=== PATIENT | male | born 1945 | race African-American/Black ===

== ENCOUNTER → 2020-06-10 | Outpatient (CLI) | payer MEDICARE, OTHER ==
--- NOTE | 2020-06-10 13:52 | KCIC ---
EXAM: Brain MRI without contrast. HISTORY: Memory loss. TECHNIQUE: Multiplanar, multisequence magnetic resonance imaging of the brain was performed without c ontrast. COMPARISON: None. FINDINGS: There is no restricted diffusion to suggest acute or subacute infarction. There is no susce ptibility effect to suggest hemorrhage. There is no mass effect or midline shift. There is no hydroce phalus. There is a focus of encephalomalacia within the right cerebellum, likely due to chronic infarction. T here are scattered areas of signal change within the cerebral white matter and ghislaine, likely due to ch ronic small vessel disease. There is cerebral volume loss. The orbits are unremarkable. There is mild paranasal sinus because of thickening and there is a tiny amount of fluid within left mastoid air cells. There are normal flow voids within the cerebral vessel s. There is no suspicious calvarial lesion. IMPRESSION: 1. No acute intracranial finding. 2. Scattered areas of signal change within the cerebral white matter and ghislaine, likely due to chronic small vessel disease. 3. Chronic infarct within the right cerebellum. Electronically signed by: Georgina Tavera MD (06/10/2020 1:50 PM) [id number]
== END ==
LOC: KCIC MRI 13:04
PROVIDERS: ATTEND Family Medicine
DX: I63.9 Cerebral infarction, unspecified (principal); R41.3 Other amnesia
CPT/HCPCS: 70551

== ENCOUNTER 2021-05-31 18:00 | Inpatient (IN) | payer MEDICARE, OTHER ==
[~2021-05-31] VITALS: Ht 172.7 cm; Wt 93.3 kg
--- NOTE | 2021-05-31 18:30 | PHYS DOC ---
Past Medical History Additional Past Medical Histor: Gout Past Surgical History: No Surgical History General Adult EDM: Chief Complaint: ABDOMINAL PAIN HPI: HPI: 76-year-old male presents with a chief complaint of right quadrant abdominal pain. Patient states pain suddenly started around noon. Patient's pain is located in the right upper quadrant does not radiate he has associated diarrhea denies any nausea or vomiting. Review of Systems: Review of Systems: Review of systems: Constitutional symptoms- No fever, no chills. Eyes- No Discharge, No Visual Loss Respiratory symptoms- No shortness of breath, No wheezing, No Dyspnea on Exertion Cardiovascular Systems; No chest pain, No Palpitations, No syncope Gastrointestinal symptoms: Positive abdominal pain, no nausea, no vomitingPositive diarrhea. Genitourinary symptoms: No dysuria. Musculoskeletal symptoms: No back pain No extremity pain. NEUROLOGICAL Symptoms: No headache, no generalized weakness; No focal Weakness Skin: No rash. Heart Score: C/O Chest Pain: N/A Risk Factors: Risk Factors: DM, Current or recent (<one month) smoker, HTN, HLP, family history of CAD, obesity. Risk Scores: Score 0 - 3: 2.5% MACE over next 6 weeks - Discharge Home Score 4 - 6: 20.3% MACE over next 6 weeks - Admit for Clinical Observation Score 7 - 10: 72.7% MACE over next 6 weeks - Early Invasive Strategies Physical Exam: PE: Constitutional: Well developed, well nourished, no acute distress, non-toxic appearance. [] HENT: Normocephalic, atraumatic, bilateral external ears normal, oropharynx moist, no oral exudates, nose normal. [] Eyes: PERRLA, EOMI, conjunctiva normal, no discharge. [] Neck: Normal range of motion, no tenderness, supple, no stridor. [] Cardiovascular:Heart rate regular rhythm, no murmur [] Lungs & Thorax: Bilateral breath sounds clear to auscultation [] Abdomen: Bowel sounds normal, soft, no tenderness, no masses, no pulsatile masses. [] Skin: Warm, dry, no erythema, no rash. [] Back: No tenderness, no CVA tenderness. [] Extremities: No tenderness, no cyanosis, no clubbing, ROM intact, no edema. [] Neurologic: Alert and oriented X 3, normal motor function, normal sensory function, no focal deficits noted. [] Psychologic: Affect normal, judgement normal, mood normal. [] Current Patient Data: Vital Signs: Vital Signs Date Time Temp Pulse Resp B/P (MAP) Pulse Ox O2 Delivery O2 Flow Rate FiO2 05/31/21 18:14 99.0 98 20 202/82 (122) 99 Room Air 99.0 EKG: EKG: [] Performed at 1855 Rate 69 Normal sinus rhythm No ST elevation No ST depression No acute SC Radiology/Procedures: Radiology/Procedures: [] Course & Med Decision Making: Course & Med Decision Making Pertinent Labs and Imaging studies reviewed. (See chart for details) [] Patient evaluated for chief complaint. Work-up consisted of laboratory analysis and radiologic imaging. Patient t found to have BUN greater than 50 creatinine greater than 2 potassium greater than 6. Treatment included IV fluid calcium Lasix albuterol and insulin and glucose. Patient will be admitted to the hospitalist for further evaluation and treatment. Critical Care Time 30 Minutes Time spent on reviewing labs, radiologic imaging, documentation, and discussing patient with consults. Renata Disclaimer: Renata Disclaimer: This electronic medical record was generated, in whole or in part, using a voice recognition dictation system. Departure Departure Impression: Primary Impression: Abdominal pain Additional Impressions: Acute renal failure Hyperkalemia Disposition: ADMITTED INPATIENT Referrals: JACKLYN CHINO MD (PCP) GINA YUAN DO May 31, 2021 18:30
[2021-05-31 18:44] LABS: BASO # 0.1 x10^3/uL (0.0-0.2); BASO % 1 % (0-3); EOS # 0.4 x10^3/uL (0.0-0.7); EOS % 5 % (0-3); HEMATOCRIT 39.5 % (39.0-53.0); LYMPH # 2.8 x10^3/uL (1.0-4.8); LYMPH % 36 % (24-48); MEAN CORPUSCULAR HEMOGLOBIN 32 pg (25-35); MEAN CORPUSCULAR HGB CONC 33 g/dL (31-37); MEAN CORPUSCULAR VOLUME 96 fL (79-100); MONO # 0.6 x10^3/uL (0.0-1.1); MONO % 8 % (0-9); NEUT # 3.9 x10^3/uL (1.8-7.7); NEUT % 50 % (31-73); PLATELET COUNT 211 x10^3/uL (140-400); RED BLOOD COUNT 4.13 x10^6/uL (4.30-5.70); RED CELL DISTRIBUTION WIDTH 15.9 % (11.5-14.5); WHITE BLOOD COUNT 7.8 x10^3/uL (4.0-11.0)
[2021-05-31 19:24] LABS: ALBUMIN 2.9 g/dL (3.4-5.0); ALBUMIN/GLOBULIN RATIO 0.6 (1.0-1.7); CALCIUM 8.6 mg/dL (8.5-10.1); CREATININE 2.9 mg/dL (0.7-1.3); GFR 25.7; TOTAL BILIRUBIN 0.3 mg/dL (0.2-1.0); TOTAL PROTEIN 7.4 g/dL (6.4-8.2)
[2021-05-31 19:29] LABS: POTASSIUM 6.3 mmol/L (3.5-5.1)
[2021-05-31] MEDS ORDERED: MORPHINE SULFATE 4 MG/ML INJ. IV STA (19:51)
[2021-05-31] MEDS ORDERED: CALCIUM GLUCONATE 1,000 MG/10 ML VIAL. IVP ONE (20:00)
[2021-05-31] MEDS ORDERED: ONDANSETRON PF 4 MG/2 ML VIAL. IVP ONE (20:00)
[2021-05-31] MEDS ORDERED: FUROSEMIDE 40 MG/4 ML VIAL. IVP ONE (20:00)
--- NOTE | 2021-05-31 20:29 | RAD ---
Exam: CT of abdomen and pelvis without contrast INDICATION: Abdominal pain TECHNIQUE: Sequential axial images through the abdomen and pelvis obtained without IV contrast. Sagit napoleon and coronal reformatted images were reconstructed from the axial data and reviewed. Exposure: One or more of the following in the visualized dose reduction techniques were utilized for this examination: 1. Automated exposure control 2. Adjustment of the MA and/or KV according to patient size 3. Use of iterative of reconstructive technique Comparisons: None FINDINGS: Heart size is normal. No pericardial visualized lung bases are clear. No pleural effusion. Evaluation of solid organs is limited secondary to noncontrast technique. Liver, spleen, pancreas, gallbladder and adrenals are unremarkable. No perinephric inflammation or hydronephrosis. No renal or ureteral calculi are identified. Bladder is partially distended and not well evaluated. Prostate is not enlarged. Large and small bowel are unremarkable. Appendix is normal. No free intra-abdominal air fluid. No obs truction. Abdominal aorta has normal course and caliber. No enlarged intra-abdominal lymph nodes. No suspicious osseous lesions or acute fractures. IMPRESSION: No acute process identified within the abdomen or pelvis. Electronically signed by: Joey Mir MD (05/31/2021 8:27 PM) ANALISA
[2021-05-31] MEDS ORDERED: IV NORMAL SALINE 1000ML BAG 1,000 ML IV ONE (20:45)
[2021-05-31 20:49] LABS: BILIRUBIN,URINE NEGATIVE (NEG); CLARITY,URINE CLEAR; COLOR,URINE YELLOW; NITRITE,URINE NEGATIVE (NEG); PH,URINE 6.5 (<5.0-8.0); PROTEIN,URINE 100 mg/dL (NEG-TRACE); UROBILINOGEN,URINE 0.2 mg/dL (0.2 mg/dL)
[2021-05-31 20:56] LABS: BACTERIA,URINE 0 /HPF (0-FEW); RBC,URINE OCC /HPF (0-2); WBC,URINE 0 /HPF (0-4)
[2021-05-31] MEDS ORDERED: INSULIN REGULAR 100 UNIT/ML 3ML VIAL. SQ ONE (22:15)
[2021-05-31] MEDS ORDERED: DEXTROSE 50% 25 GM / 50ML DISP.SYRIN. IV ONE (22:15)
[2021-05-31] MEDS ORDERED: ONDANSETRON PF 4 MG/2 ML VIAL. IVP PRN (22:15)
[2021-06-01] VITALS (7 sets, daily range): BP systolic 162–182; BP diastolic 69–90
[2021-06-01] MEDS ORDERED: INSU100I27 SQ (02:27)
[2021-06-01] MEDS ORDERED: SODI650T PO (02:27)
[2021-06-01] MEDS ORDERED: LINA5TAB PO (02:27)
[2021-06-01] MEDS ORDERED: PANT40TA77 PO (02:27)
[2021-06-01] MEDS ORDERED: ATOR40TA59 PO (02:27)
[2021-06-01] MEDS ORDERED: METO50TA6 PO (02:27)
[2021-06-01] MEDS ORDERED: FLUT16SP NS (02:27)
[2021-06-01] MEDS ORDERED: INSU100I17 SQ (02:27)
[2021-06-01] MEDS ORDERED: FOLI0.8T3 PO (02:27)
[2021-06-01] MEDS ORDERED: ASPI-630 PO (02:27)
[2021-06-01] MEDS ORDERED: ALLO100T PO (02:27)
[2021-06-01] MEDS ORDERED: ACET325T21 PO (02:31)
[2021-06-01] MEDS ORDERED: GUAI1TAB10 PO (02:31)
[2021-06-01] MEDS ORDERED: MAG1TAB.11 PO (02:31)
[2021-06-01] MEDS ORDERED: ALBU2.5V8 INH (02:31)
[2021-06-01] MEDS ORDERED: LOPE2TAB27 PO (02:31)
[2021-06-01] MEDS ORDERED: CALC300T5 PO (02:31)
[2021-06-01] MEDS ORDERED: LORA10TA3 PO (02:31)
[2021-06-01] MEDS ORDERED: BISA10SU55 RC (02:31)
[2021-06-01] MEDS ORDERED: SENN1TAB62 PO (02:31)
[2021-06-01] MEDS ORDERED: NYST15CR TP (02:34)
--- NOTE | 2021-06-01 04:03 | NUR ---
Spoke with Dr Obando regarding pt's med/surg admission status and elevated potassium level. Order for tele received.
[2021-06-01] MEDS: METOPROLOL TART IMMED RELEASE 50 MG TABLET. PO SCH ×3 (04:35→22:12)
[2021-06-01] MEDS ORDERED: DEXTROSE 50% 25 GM / 50ML DISP.SYRIN. IV PRN ×2 (08:00→09:00)
[2021-06-01] MEDS: INSULIN LISPRO 300 UNITS/3 ML VIAL. SQ SCH ×7 (08:00→17:00)
[2021-06-01] MEDS ORDERED: SENNOSIDES/DOCUSATE 8.6/50MG TABLET. PO PRN (09:00)
[2021-06-01] MEDS ORDERED: NYSTATIN 100,000 UNIT/GM TOPICAL CREAM 15GM TUBE. TP PRN (09:00)
[2021-06-01] MEDS ORDERED: ACETAMINOPHEN 325 MG TABLET. PO PRN (09:00)
[2021-06-01] MEDS ORDERED: METOPROLOL TART IMMED RELEASE 50 MG TABLET. PO SCH (09:00)
[2021-06-01] MEDS: SODIUM BICARBONATE 650 MG TABLET. PO SCH ×2 (09:30→22:11)
[2021-06-01] MEDS: FLUTICASONE 50MCG/NASAL SPRAY 16GM BOTTLE. NS SCH (09:30)
[2021-06-01] MEDS: ASPIRIN CHEWABLE 81 MG TABLET. PO SCH (09:30)
[2021-06-01] MEDS: ALLOPURINOL 100 MG TABLET. PO SCH (09:31)
[2021-06-01] MEDS: ATORVASTATIN CALCIUM 40 MG TABLET. PO SCH (09:31)
[2021-06-01] MEDS: PANTOPRAZOLE 40 MG TABLET.DR. PO SCH (09:31)
[2021-06-01] MEDS: FOLIC/VIT B COMP W-C (RENAL) TABLET. PO SCH (09:31)
[2021-06-01] MEDS: LINAGLIPTIN 5 MG TABLET PO SCH (09:31)
--- NOTE | 2021-06-01 09:58 | RAD ---
EXAM: Abdomen sonogram. HISTORY: Pain. TECHNIQUE: Sonographic imaging of the abdomen was performed. COMPARISON: None. FINDINGS: The liver is normal in size. There is hepatic steatosis. No focal hepatic lesion is seen. T he gallbladder is unremarkable. The common bile duct is normal in caliber. The kidneys are normal in size. There is a 2.4 cm simple appearing right renal cyst. The pancreas, aorta and inferior vena cava are obscured due to bowel gas. The spleen is normal in size. IMPRESSION: 1. Hepatic steatosis. 2. 2.4 cm simple appearing right renal cyst. Follow-up is not routinely performed for simple cysts. 3. Obscured midline structures due to bowel gas. Electronically signed by: Georgina Tavera MD (06/01/2021 9:56 AM) [id number]
[2021-06-01] MEDS ORDERED: SODIUM BICARBONATE VIAL 50 MEQ in IV 1/2 NORMAL SALINE 1,000 ML IV ONE (10:00)
[2021-06-01] MEDS ORDERED: LIDO:MAALOX 1:1 20 ML SINGLE DOSE. PO PRN (11:00)
[2021-06-01] MEDS ORDERED: LIDO:MAALOX 1:1 20 ML SINGLE DOSE. PO ONE (11:15)
--- NOTE | 2021-06-01 12:56 | PDOC1 ---
History and Physical Date of Admission Date of Admission DATE: 06/01/21 TIME: 12:55 Source Source: Chart review, Patient History of Present Illness History of Present Illness LATE ENTRY, pt seen 929 Mr. Tinajero is a 76-year-old male admit with chest pain, overnight, complaint was of right quadrant abdominal pain. Patient states pain suddenly started yesterday around noon. This AM, he still hurts, a is lying in bed, and appears weak. He complains of pain with mvoeemtn and can press on it and cause pain. Pain 6/10, does not radiate. NO chage in bowel or bladder. labs were concerning last night Past Medical History Cardiovascular: HTN Renal/: Chronic renal insuff Endocrine: Diabetes Dermatology: No pertinent hx Past Surgical History Past Surgical History: No pertinent history Family History Family History: Alzheimer's Disease Social History Smoke: No ALCOHOL: none Drugs: None Current Problem List Problem List Problems Medical Problems: (1) Abdominal pain Status: Acute (2) Acute renal failure Status: Acute (3) Hyperkalemia Status: Acute Current Medications Current Medications Current Medications Furosemide (Lasix) 40 mg 1X ONCE IVP Last administered on 05/31/21at 20:36; Start 05/31/21 at 20:00; Stop 05/31/21 at 20:01; Status DC Calcium Gluconate (Calcium Gluconate) 1,000 mg 1X ONCE IVP Last administered on 05/31/21at 20:38; Start 05/31/21 at 20:00; Stop 05/31/21 at 20:01; Status DC Ondansetron HCl (Zofran) 4 mg 1X ONCE IVP Last administered on 05/31/21at 20:33; Start 05/31/21 at 20:00; Stop 05/31/21 at 20:01; Status DC Morphine Sulfate (Morphine Sulfate) 4 mg 1X STAT IV Last administered on 05/31/21at 20:33; Start 05/31/21 at 19:51; Stop 05/31/21 at 19:53; Status DC Sodium Chloride 1,000 ml @ 1,000 mls/hr 1X ONCE IV Last administered on 05/31/21at 20:45; Start 05/31/21 at 20:45; Stop 05/31/21 at 21:44; Status DC Insulin Human Regular (HumuLIN R VIAL) 10 unit 1X ONCE SQ Last administered on 05/31/21at 22:37; Start 05/31/21 at 22:15; Stop 05/31/21 at 22:16; Status DC Dextrose (Dextrose 50%-Water Syringe) 25 gm 1X ONCE IV Last administered on 05/31/21at 22:36; Start 05/31/21 at 22:15; Stop 05/31/21 at 22:16; Status DC Ondansetron HCl (Zofran) 4 mg PRN Q8HRS PRN IVP NAUSEA/VOMITING; Start 05/31/21 at 22:15; Stop 06/01/21 at 22:14 Metoprolol Tartrate (Lopressor) 50 mg BID PO Last administered on 06/01/21at 04:35; Start 06/01/21 at 04:15 Insulin Human Lispro (HumaLOG) 0-5 UNITS TIDWMEALS SQ ; Start 06/01/21 at 08:00 Dextrose (Dextrose 50%-Water Syringe) 12.5 gm PRN Q15MIN PRN IV SEE COMMENTS; Start 06/01/21 at 08:00 Acetaminophen (Tylenol) 650 mg PRN Q6HRS PRN PO MILD PAIN / TEMP > 100.3'F; Start 06/01/21 at 09:00 Allopurinol (Zyloprim) 100 mg DAILY PO Last administered on 06/01/21 09:31; Start 06/01/21 at 09:00 Aspirin (Aspirin Chewable) 81 mg DAILY PO Last administered on 06/01/21 09:30; Start 06/01/21 at 09:00 Atorvastatin Calcium (Lipitor) 40 mg DAILY PO Last administered on 06/01/21 09:31; Start 06/01/21 at 09:00 Bisacodyl (Dulcolax Supp) 10 mg PRN DAILY PRN RC CONSTIPATION; Start 06/01/21 at 09:00 Fluticasone Propionate (Flonase) 2 spray DAILY NS Last administered on 06/01/21at 09:30; Start 06/01/21 at 09:00 Vitamin B Complex/ Vitamin C (Jocy-Keke) 1 tab DAILY PO Last administered on 06/01/21 09:31; Start 06/01/21 at 09:00 Linagliptin (Tradjenta) 5 mg DAILY PO Last administered on 12/29/21at 09:31; Start 06/01/21 at 09:00 Metoprolol Tartrate (Lopressor) 50 mg BID PO ; Start 06/01/21 at 09:00; Status UNV Nystatin (Mycostatin) 1 maggie PRN BID PRN TP SKIN PROTECTION; Start 06/01/21 at 09:00 Pantoprazole Sodium (Protonix) 40 mg DAILYAC PO Last administered on 06/01/21at 09:31; Start 06/01/21 at 09:00 Senna/Docusate Sodium (Senna Plus) 2 tab PRN QHS PRN PO CONSTIPATION; Start 06/01/21 at 09:00 Sodium Bicarbonate (Sodium Bicarbonate) 650 mg BID PO Last administered on 06/01/21at 09:30; Start 06/01/21 at 09:00 Insulin Human Lispro (HumaLOG) 8 units TIDWMEALS SQ ; Start 06/01/21 at 09:00 Insulin Glargine (Lantus Syringe) 27 unit QHS SQ ; Start 06/01/21 at 21:00 Insulin Human Lispro (HumaLOG) 0-9 UNITS TIDWMEALS SQ ; Start 06/01/21 at 12:00 Dextrose (Dextrose 50%-Water Syringe) 12.5 gm PRN Q15MIN PRN IV SEE COMMENTS; Start 06/01/21 at 09:00 Sodium Bicarbonate 50 meq/Sodium Chloride 1,050 ml @ 100 mls/hr 1X ONCE IV Last administered on 06/01/21at 09:32; Start 06/01/21 at 10:00; Stop 06/01/21 at 20:29 Active Scripts Active Reported Nystatin 15 Gm Cream..g. 1 Maggie TP PRN BID PRN Senna Plus Tablet (Sennosides/Docusate Sodium) 1 Each Tablet 2 Each PO PRN QHS PRN Mucus Relief Dm Tablet (Guaifenesin/Dextromethorphan) 1 Each Tablet 1 Each PO PRN BID PRN Mintox Plus Tablet Chewable (Mag Hydrox/Al Hydrox/Simeth) 1 Each Tab.chew 2 Each PO PRN Q3HRS PRN Loratadine 10 Mg Tablet 10 Mg PO PRN DAILY PRN Loperamide (Loperamide Hcl) 2 Mg Tablet 2 Mg PO PRN Q4HRS PRN Tums (Calcium Carbonate) 300 Mg Tab.chew 1,000 Mg PO PRN Q4HRS PRN Dulcolax (Bisacodyl) 10 Mg Supp.rect 10 Mg RC PRN DAILY PRN Proair Hfa Inhaler (Albuterol Sulfate) 8.5 Gm Hfa.aer.ad 2 Puff INH PRN Q4HRS PRN Acetaminophen 325 Mg Tablet 650 Mg PO PRN Q6HRS PRN Novolog Flexpen (Insulin Aspart) 100 Unit/1 Ml Insuln.pen 8 Unit SQ TIDWMEALS Levemir Flextouch (Insulin Detemir) 100 Unit/1 Ml Insuln.pen 27 Unit SQ QHS Tradjenta (Linagliptin) 5 Mg Tablet 5 Mg PO DAILY Sodium Bicarbonate 650 Mg Tablet 650 Mg PO BID Pantoprazole Sodium (Pantoprazole Sodium) 40 Mg Tablet.dr 40 Mg PO DAILYAC Nephro-Keke Tablet (Folic Acid/Vitamin B Comp W-C) 0.8 Mg Tablet 1 Tab PO DAILY Metoprolol Tartrate 50 Mg Tablet 50 Mg PO BID Fluticasone Propionate Nasal Allen (Fluticasone Propionate) 16 Gm Allen.susp 2 Allen NS DAILY Atorvastatin Calcium 40 Mg Tablet 40 Mg PO DAILY Aspirin 81 Mg Tab.chew 81 Mg PO DAILY Allopurinol 100 Mg Tablet 100 Mg PO DAILY Allergies Allergies: Coded Allergies: No Known Drug Allergies (Unverified , 05/31/21) ROS General: YES: Fatigue, Malaise; No: Chills, Night Sweats, Appetite, Other PSYCHOLOGICAL ROS: No: Anxiety, Behavioral Disorder, Concentration difficultie, Decreased libido, Depression, Disorientation, Hallucinations, Hostility, Irritablity, Memory difficulties, Mood Swings, Obsessive thoughts, Physical abuse, Sexual abuse, Sleep disturbances, Suicidal ideation, Other Eyes: No Blurry vision, No Decreased vision, No Double vision, No Dry eyes, No Excessive tearing, No Eye Pain, No Itchy Eyes, No Loss of vision, No Photophobia, No Scotomata, No Uses contacts, No Uses glasses, No Other HEENT: YES: Heacaches; No: Visual Changes, Hearing change, Nasal congestion, Nasal discharge, Oral lesions, Sinus pain, Sore Throat, Epistaxis, Sneezing, Snoring, Tinnitus, Vertigo, Vocal changes, Other Respiratory: YES: SOB with excertion; No: Cough, Hemoptysis, Orthopnea, Pleuritic Pain, Shortness of breath, Sputum Changes, Stridor, Tachypnea, Wheezing, Other Cardiovascular: No Chest Pain, No Palpitations, No Orthopnea, No Paroxysmal Noc. Dyspnea, No Edema, No Lt Headedness, No Other Gastrointestinal: Yes Nausea, Yes Abdominal Pain; No Vomiting, No Diarrhea, No Constipation, No Melena, No Hematochezia, No Other Genitourinary: No Dysuria, No Frequency, No Incontinence, No Hematuria, No Retention, No Discharge, No Urgency, No Pain, No Flank Pain, No Other, No , No , No , No , No , No , No Musculoskeletal: No Gait Disturbance, No Joint Pain, No Joint Stiffness, No Syeda int Swelling, No Muscle Pain, No Muscular Weakness, No Pain In:, No Swelling In:, No Other Neurological: No Behavorial Changes, No Bowel/Bladder ControlChng, No Confusion, No Dizziness, No Gait Disturbance, No Headaches, No Impaired C oord/balance, No Memory Loss, No Numbness/Tingling, No Seizures, No Speech Problems, No Tremors, No Visual Changes, No Weakness, No Other Skin: No Dry Skin, No Eczema, No Hair Changes, No Lumps, No Mole Changes, No Mottling, No Nail Changes, No Pruritus, No Rash, No Skin Lesion Changes, No Other, No Acne Physical Exam General: Alert, Oriented X3, Cooperative, mild distress HEENT: PERRLA Lungs: Normal air movement, Other (tender along lower right rib, to sternum pain to palpation) Heart: S1S2, no thrills Abdomen: Normal bowel sounds, Soft Rectal Exam: not examined Extremities: No clubbing Skin: No breakdown Neuro: Normal speech Psych/Mental Status: Mental status NL, Mood NL Vitals Vitals Vital Signs Date Time Temp Pulse Resp B/P (MAP) Pulse Ox O2 Delivery O2 Flow Rate FiO2 06/01/21 09:00 68 162/69 06/01/21 08:00 Room Air 06/01/21 07:00 98.0 21 94 98.0 Labs Labs Laboratory Tests Test 05/31/21 18:30 05/31/21 20:30 05/31/21 21:35 06/01/21 07:24 White Blood Count 7.8 x10^3/uL (4.0-11.0) Red Blood Count 4.13 x10^6/uL (4.30-5.70) Hemoglobin 13.0 g/dL (13.0-17.5) Hematocrit 39.5 % (39.0-53.0) Mean Corpuscular Volume 96 fL (79-100) Mean Corpuscular Hemoglobin 32 pg (25-35) Mean Corpuscular Hemoglobin Concent 33 g/dL (31-37) Red Cell Distribution Width 15.9 % (11.5-14.5) Platelet Count 211 x10^3/uL (140-400) Neutrophils (%) (Auto) 50 % (31-73) Lymphocytes (%) (Auto) 36 % (24-48) Monocytes (%) (Auto) 8 % (0-9) Eosinophils (%) (Auto) 5 % (0-3) Basophils (%) (Auto) 1 % (0-3) Neutrophils # (Auto) 3.9 x10^3/uL (1.8-7.7) Lymphocytes # (Auto) 2.8 x10^3/uL (1.0-4.8) Monocytes # (Auto) 0.6 x10^3/uL (0.0-1.1) Eosinophils # (Auto) 0.4 x10^3/uL (0.0-0.7) Basophils # (Auto) 0.1 x10^3/uL (0.0-0.2) Sodium Level 137 mmol/L (136-145) Potassium Level 6.3 mmol/L (3.5-5.1) 6.0 mmol/L (3.5-5.1) Chloride Level 104 mmol/L (98-107) Carbon Dioxide Level 22 mmol/L (21-32) Anion Gap 11 (6-14) Blood Urea Nitrogen 51 mg/dL (8-26) Creatinine 2.9 mg/dL (0.7-1.3) Estimated GFR (Cockcroft-Gault) 25.7 BUN/Creatinine Ratio 18 (6-20) Glucose Level 309 mg/dL (70-99) Calcium Level 8.6 mg/dL (8.5-10.1) Total Bilirubin 0.3 mg/dL (0.2-1.0) Aspartate Amino Transf (AST/SGOT) 24 U/L (15-37) Alanine Aminotransferase (ALT/SGPT) 44 U/L (16-63) Alkaline Phosphatase 147 U/L (46-116) Troponin I High Sensitivity 33 ng/L (4-75) Total Protein 7.4 g/dL (6.4-8.2) Albumin 2.9 g/dL (3.4-5.0) Albumin/Globulin Ratio 0.6 (1.0-1.7) Lipase 158 U/L (73-393) Urine Collection Type Unknown Urine Color Yellow Urine Clarity Clear Urine pH 6.5 (<5.0-8.0) Urine Specific [place] 1.015 (1.000-1.030) Urine Protein 100 mg/dL (NEG-TRACE) Urine Glucose (UA) 500 mg/dL (NEG) Urine Ketones (Stick) Negative mg/dL (NEG) Urine Blood Trace (NEG) Urine Nitrite Negative (NEG) Urine Bilirubin Negative (NEG) Urine Urobilinogen Dipstick 0.2 mg/dL (0.2 mg/dL) Urine Leukocyte Esterase Negative (NEG) Urine RBC Occ /HPF (0-2) Urine WBC 0 /HPF (0-4) Urine Bacteria 0 /HPF (0-FEW) Glucose (Fingerstick) 135 mg/dL (70-99) Test 06/01/21 11:51 Glucose (Fingerstick) 193 mg/dL (70-99) Laboratory Tests Test 05/31/21 18:30 05/31/21 20:30 05/31/21 21:35 06/01/21 07:24 White Blood Count 7.8 x10^3/uL (4.0-11.0) Red Blood Count 4.13 x10^6/uL (4.30-5.70) Hemoglobin 13.0 g/dL (13.0-17.5) Hematocrit 39.5 % (39.0-53.0) Mean Corpuscular Volume 96 fL (79-100) Mean Corpuscular Hemoglobin 32 pg (25-35) Mean Corpuscular Hemoglobin Concent 33 g/dL (31-37) Red Cell Distribution Width 15.9 % (11.5-14.5) Platelet Count 211 x10^3/uL (140-400) Neutrophils (%) (Auto) 50 % (31-73) Lymphocytes (%) (Auto) 36 % (24-48) Monocytes (%) (Auto) 8 % (0-9) Eosinophils (%) (Auto) 5 % (0-3) Basophils (%) (Auto) 1 % (0-3) Neutrophils # (Auto) 3.9 x10^3/uL (1.8-7.7) Lymphocytes # (Auto) 2.8 x10^3/uL (1.0-4.8) Monocytes # (Auto) 0.6 x10^3/uL (0.0-1.1) Eosinophils # (Auto) 0.4 x10^3/uL (0.0-0.7) Basophils # (Auto) 0.1 x10^3/uL (0.0-0.2) Sodium Level 137 mmol/L (136-145) Potassium Level 6.3 mmol/L (3.5-5.1) 6.0 mmol/L (3.5-5.1) Chloride Level 104 mmol/L (98-107) Carbon Dioxide Level 22 mmol/L (21-32) Anion Gap 11 (6-14) Blood Urea Nitrogen 51 mg/dL (8-26) Creatinine 2.9 mg/dL (0.7-1.3) Estimated GFR (Cockcroft-Gault) 25.7 BUN/Creatinine Ratio 18 (6-20) Glucose Level 309 mg/dL (70-99) Calcium Level 8.6 mg/dL (8.5-10.1) Total Bilirubin 0.3 mg/dL (0.2-1.0) Aspartate Amino Transf (AST/SGOT) 24 U/L (15-37) Alanine Aminotransferase (ALT/SGPT) 44 U/L (16-63) Alkaline Phosphatase 147 U/L (46-116) Troponin I High Sensitivity 33 ng/L (4-75) Total Protein 7.4 g/dL (6.4-8.2) Albumin 2.9 g/dL (3.4-5.0) Albumin/Globulin Ratio 0.6 (1.0-1.7) Lipase 158 U/L (73-393) Urine Collection Type Unknown Urine Color Yellow Urine Clarity Clear Urine pH 6.5 (<5.0-8.0) Urine Specific [place] 1.015 (1.000-1.030) Urine Protein 100 mg/dL (NEG-TRACE) Urine Glucose (UA) 500 mg/dL (NEG) Urine Ketones (Stick) Negative mg/dL (NEG) Urine Blood Trace (NEG) Urine Nitrite Negative (NEG) Urine Bilirubin Negative (NEG) Urine Urobilinogen Dipstick 0.2 mg/dL (0.2 mg/dL) Urine Leukocyte Esterase Negative (NEG) Urine RBC Occ /HPF (0-2) Urine WBC 0 /HPF (0-4) Urine Bacteria 0 /HPF (0-FEW) Glucose (Fingerstick) 135 mg/dL (70-99) Test 06/01/21 11:51 Glucose (Fingerstick) 193 mg/dL (70-99) VTE Prophylaxis Ordered VTE Prophylaxis Devices: No VTE Pharmacological Prophylaxi: Yes Assessment/Plan Assessment/Plan critical hyperkalemia acute no chronic renal failure obese, BMI 31 cognitive decline, he is unaware of his medical problems, lives in [facility], he reports he has never driven, still does his finances, takes bicarb PO, so likely chronic problem Dm2, on insulin costochrondritis, lidoderm patch weakness Justifications for Admission Other Justification DARIANA KING MD Jun 01, 2021 12:56
[2021-06-01 13:09] LABS: CALCIUM 8.6 mg/dL (8.5-10.1); CREATININE 2.7 mg/dL (0.7-1.3); GFR 27.9
[2021-06-01] MEDS ORDERED: INSULIN REGULAR 100 UNIT/ML 3ML VIAL. IV ONE (13:15)
[2021-06-01] MEDS ORDERED: CALCIUM GLUCONATE 1,000 MG/10 ML VIAL. IV ONE (13:15)
[2021-06-01] MEDS ORDERED: DEXTROSE 50% 25 GM / 50ML DISP.SYRIN. IV ONE (13:15)
[2021-06-01 13:41] LABS: POTASSIUM 7.1 mmol/L (3.5-5.1)
--- NOTE | 2021-06-01 13:58 | NUR ---
SW following. Discussed with RN, pt from [facility], room air, renal diet. PT/OT ordered. Renal following. SW will continue to follow.
--- NOTE | 2021-06-01 14:57 | PDOC2 ---
CONSULT Date of Consult Date of Consult DATE: 06/01/21 Late Entry, No access available to records earlier as [employer] was down Reason for Consult Reason for Consult: Acute Renal Failure , HyperKalemia Identification/Chief Complaint Chief Complaint Currently denies any complaints Resting comfortably Source Source: Chart review History of Present Illness Reason for Visit: Patient is a 76-year-old AAM admitted with chest pain, overnight, right quadrant abdominal pain. Unable to Obtain any significant history from the patient Most of the history obtained from chart review from Nursing and later chart reviewed(after EMR was back up) Pt denies any N/V. Denies F/C. He denies any urinary complaints . Im not sure about his baseline mental status, per nursing he is not oriented . Unable to obtain any history of increased K intake. On Reviewing his med list with the RN, he is not on ARB/SAVANNAH-I or Aldactone per home list. His PCP visit in May 2020 had Lisinopril in his med list No Intermittent records available to me He has CKD - he was scheduled to see me at our office as new consult in August 2020 but was a no show I reviewed his past labs - Cr 1.5-2.5 since 2018 and 3.9 in 2013 . No interval labs between 2013 and 2018 . Most Recent Cr prior to this hospitalization available to me showed Cr of 2.3 in Feb 2020 Past Medical History Past Medical History Cardiovascular: HTN Renal/: Chronic renal insuff Endocrine: Diabetes Dermatology: No pertinent hx Family History Family History Unable to Obtain from patient Social History Social History Smoke: No ALCOHOL: none Drugs: None Current Problem List Problem List Problems Medical Problems: (1) Abdominal pain Status: Acute (2) Acute renal failure Status: Acute (3) Hyperkalemia Status: Acute Current Medications Current Medications Current Medications Furosemide (Lasix) 40 mg 1X ONCE IVP Last administered on 05/31/21at 20:36; Start 05/31/21 at 20:00; Stop 05/31/21 at 20:01; Status DC Calcium Gluconate (Calcium Gluconate) 1,000 mg 1X ONCE IVP Last administered on 05/31/21at 20:38; Start 05/31/21 at 20:00; Stop 05/31/21 at 20:01; Status DC Ondansetron HCl (Zofran) 4 mg 1X ONCE IVP Last administered on 05/31/21at 20:33; Start 05/31/21 at 20:00; Stop 05/31/21 at 20:01; Status DC Morphine Sulfate (Morphine Sulfate) 4 mg 1X STAT IV Last administered on 05/31/21at 20:33; Start 05/31/21 at 19:51; Stop 05/31/21 at 19:53; Status DC Sodium Chloride 1,000 ml @ 1,000 mls/hr 1X ONCE IV Last administered on 05/31/21at 20:45; Start 05/31/21 at 20:45; Stop 05/31/21 at 21:44; Status DC Insulin Human Regular (HumuLIN R VIAL) 10 unit 1X ONCE SQ Last administered on 05/31/21at 22:37; Start 05/31/21 at 22:15; Stop 05/31/21 at 22:16; Status DC Dextrose (Dextrose 50%-Water Syringe) 25 gm 1X ONCE IV Last administered on 05/31/21at 22:36; Start 05/31/21 at 22:15; Stop 05/31/21 at 22:16; Status DC Ondansetron HCl (Zofran) 4 mg PRN Q8HRS PRN IVP NAUSEA/VOMITING; Start 05/31/21 at 22:15; Stop 06/01/21 at 22:14 Metoprolol Tartrate (Lopressor) 50 mg BID PO Last administered on 06/01/21at 04:35; Start 06/01/21 at 04:15 Insulin Human Lispro (HumaLOG) 0-5 UNITS TIDWMEALS SQ ; Start 06/01/21 at 08:00 Dextrose (Dextrose 50%-Water Syringe) 12.5 gm PRN Q15MIN PRN IV SEE COMMENTS; Start 06/01/21 at 08:00; Stop 06/01/21 at 13:03; Status DC Acetaminophen (Tylenol) 650 mg PRN Q6HRS PRN PO MILD PAIN / TEMP > 100.3'F; Start 06/01/21 at 09:00 Allopurinol (Zyloprim) 100 mg DAILY PO Last administered on 06/01/21at 09:31; Start 06/01/21 at 09:00 Aspirin (Aspirin Chewable) 81 mg DAILY PO Last administered on 06/01/21at 09:30; Start 06/01/21 at 09:00 Atorvastatin Calcium (Lipitor) 40 mg DAILY PO Last administered on 06/01/21at 09:31; Start 06/01/21 at 09:00 Bisacodyl (Dulcolax Supp) 10 mg PRN DAILY PRN RC CONSTIPATION; Start 06/01/21 at 09:00 Fluticasone Propionate (Flonase) 2 spray DAILY NS Last administered on 06/01/21at 09:30; Start 06/01/21 at 09:00 Vitamin B Complex/ Vitamin C (Jocy-Keke) 1 tab DAILY PO Last administered on 06/01/21at 09:31; Start 06/01/21 at 09:00 Linagliptin (Tradjenta) 5 mg DAILY PO Last administered on 06/01/21at 09:31; Start 06/01/21 at 09:00 Metoprolol Tartrate (Lopressor) 50 mg BID PO ; Start 06/01/21 at 09:00; Status UNV Nystatin (Mycostatin) 1 maggie PRN BID PRN TP SKIN PROTECTION; Start 06/01/21 at 09:00 Pantoprazole Sodium (Protonix) 40 mg DAILYAC PO Last administered on 06/01/21at 09:31; Start 06/01/21 at 09:00 Senna/Docusate Sodium (Senna Plus) 2 tab PRN QHS PRN PO CONSTIPATION; Start 06/01/21 at 09:00 Sodium Bicarbonate (Sodium Bicarbonate) 650 mg BID PO Last administered on 06/01/21at 09:30; Start 06/01/21 at 09:00 Insulin Human Lispro (HumaLOG) 8 units TIDWMEALS SQ ; Start 06/01/21 at 09:00 Insulin Glargine (Lantus Syringe) 27 unit QHS SQ ; Start 06/01/21 at 21:00 Insulin Human Lispro (HumaLOG) 0-9 UNITS TIDWMEALS SQ ; Start 06/01/21 at 12:00 Dextrose (Dextrose 50%-Water Syringe) 12.5 gm PRN Q15MIN PRN IV SEE COMMENTS; Start 06/01/21 at 09:00 Sodium Bicarbonate 50 meq/Sodium Chloride 1,050 ml @ 100 mls/hr 1X ONCE IV Last administered on 06/01/21at 09:32; Start 06/01/21 at 10:00; Stop 06/01/21 at 20:29 Multi-Ingredient Mouthwash/Gargle (Gi Cocktail) 20 ml PRN 1X PRN PO CHEST PAIN; Start 06/01/21 at 11:00; Stop 06/01/21 at 13:04; Status DC Multi-Ingredient Mouthwash/Gargle (Gi Cocktail) 20 ml 1X ONCE PO Last administered on 06/01/21at 11:30; Start 06/01/21 at 11:15; Stop 06/01/21 at 13:04; Status DC Insulin Human Regular (HumuLIN R VIAL) 10 unit 1X ONCE IV ; Start 06/01/21 at 13:15; Stop 06/01/21 at 13:16; Status DC Calcium Gluconate (Calcium Gluconate) 1,000 mg 1X ONCE IV ; Start 06/01/21 at 13:15; Stop 06/01/21 at 13:16; Status DC Dextrose (Dextrose 50%-Water Syringe) 25 gm 1X ONCE IV ; Start 06/01/21 at 13:15; Stop 06/01/21 at 13:16; Status DC Active Scripts Active Reported Nystatin 15 Gm Cream..g. 1 Maggie TP PRN BID PRN Senna Plus Tablet (Sennosides/Docusate Sodium) 1 Each Tablet 2 Each PO PRN QHS PRN Mucus Relief Dm Tablet (Guaifenesin/Dextromethorphan) 1 Each Tablet 1 Each PO PRN BID PRN Mintox Plus Tablet Chewable (Mag Hydrox/Al Hydrox/Simeth) 1 Each Tab.chew 2 Each PO PRN Q3HRS PRN Loratadine 10 Mg Tablet 10 Mg PO PRN DAILY PRN Loperamide (Loperamide Hcl) 2 Mg Tablet 2 Mg PO PRN Q4HRS PRN Tums (Calcium Carbonate) 300 Mg Tab.chew 1,000 Mg PO PRN Q4HRS PRN Dulcolax (Bisacodyl) 10 Mg Supp.rect 10 Mg RC PRN DAILY PRN Proair Hfa Inhaler (Albuterol Sulfate) 8.5 Gm Hfa.aer.ad 2 Puff INH PRN Q4HRS PRN Acetaminophen 325 Mg Tablet 650 Mg PO PRN Q6HRS PRN Novolog Flexpen (Insulin Aspart) 100 Unit/1 Ml Insuln.pen 8 Unit SQ TIDWMEALS Levemir Flextouch (Insulin Detemir) 100 Unit/1 Ml Insuln.pen 27 Unit SQ QHS Tradjenta (Linagliptin) 5 Mg Tablet 5 Mg PO DAILY Sodium Bicarbonate 650 Mg Tablet 650 Mg PO BID Pantoprazole Sodium (Pantoprazole Sodium) 40 Mg Tablet.dr 40 Mg PO DAILYAC Nephro-Keke Tablet (Folic Acid/Vitamin B Comp W-C) 0.8 Mg Tablet 1 Tab PO DAILY Metoprolol Tartrate 50 Mg Tablet 50 Mg PO BID Fluticasone Propionate Nasal [place] (Fluticasone Propionate) 16 Gm [place].susp 2 [place] NS DAILY Atorvastatin Calcium 40 Mg Tablet 40 Mg PO DAILY Aspirin 81 Mg Tab.chew 81 Mg PO DAILY Allopurinol 100 Mg Tablet 100 Mg PO DAILY Allergies Allergies: Coded Allergies: No Known Drug Allergies (Unverified , 05/31/21) ROS Review of System As per HPI Unable to Obtain details - Poor historian/? baseline Mental status Physical Exam Physical Exam General: NAD HEENT: PERRLA, om OM moist Neck Supple Lungs: CTA, non labored Heart: S1S2, Abdomen: Normal bowel sounds, Soft Extremities: No clubbing, No edema Skin: No rash Neuro: grossly normal, No baum, Vital Signs Vital Signs Date Time Temp Pulse Resp B/P (MAP) Pulse Ox O2 Delivery O2 Flow Rate FiO2 06/01/21 11:00 97.4 66 18 178/72 (107) 96 97.4 06/01/21 08:00 Room Air Assessment & Plan JOSEPHINE - Pre- renal , No other clear etiology identified. Unable to Obtain history from patient. CT scan-No perinephric inflammation or hydronephrosis. No renal or ureteral calculi are identified. Bladder is partially distended and not well evaluated. Prostate is not enlarged. UA unremarkable Renal US was pending. Unable to review records earlier today as EMR was down .Supportive care, monitor hydration , avoid Nephrotoxins , strict I/O. Bladder scan prn CKD Stage 3 B -He had initial Consult appt with us in august 2020, he didnt keep his appt. I reviewed records from our Office, Cr in Feb 2020 was 2.3 , baseline 1.6-2.5. JOSEPHINE in 2013 Cr 3.9 HyperKalemia - No EKG changes ;Etiology uncertain - CT scan Abd Normal pt unable to give any history of med changes or PO K intake .Recommend Hyperkalemia P rotocol, Kayexalate (if No CI) ,Monitor closely If stays elevated will need dialysis Abdominal Pain POA- CT of abdomen and pelvis without contrast-Large and small bowel are unremarkable. No free intra-abdominal air fluid. No obstruction. Cognitive decline HTN - Was on Lisinopril in May 2020- no interval records available.BP high, antihypertensives Labs Labs Laboratory Tests Test 05/31/21 18:30 05/31/21 20:30 05/31/21 21:35 06/01/21 07:24 White Blood Count 7.8 x10^3/uL (4.0-11.0) Red Blood Count 4.13 x10^6/uL (4.30-5.70) Hemoglobin 13.0 g/dL (13.0-17.5) Hematocrit 39.5 % (39.0-53.0) Mean Corpuscular Volume 96 fL (79-100) Mean Corpuscular Hemoglobin 32 pg (25-35) Mean Corpuscular Hemoglobin Concent 33 g/dL (31-37) Red Cell Distribution Width 15.9 % (11.5-14.5) Platelet Count 211 x10^3/uL (140-400) Neutrophils (%) (Auto) 50 % (31-73) Lymphocytes (%) (Auto) 36 % (24-48) Monocytes (%) (Auto) 8 % (0-9) Eosinophils (%) (Auto) 5 % (0-3) Basophils (%) (Auto) 1 % (0-3) Neutrophils # (Auto) 3.9 x10^3/uL (1.8-7.7) Lymphocytes # (Auto) 2.8 x10^3/uL (1.0-4.8) Monocytes # (Auto) 0.6 x10^3/uL (0.0-1.1) Eosinophils # (Auto) 0.4 x10^3/uL (0.0-0.7) Basophils # (Auto) 0.1 x10^3/uL (0.0-0.2) Sodium Level 137 mmol/L (136-145) Potassium Level 6.3 mmol/L (3.5-5.1) 6.0 mmol/L (3.5-5.1) Chloride Level 104 mmol/L (98-107) Carbon Dioxide Level 22 mmol/L (21-32) Anion Gap 11 (6-14) Blood Urea Nitrogen 51 mg/dL (8-26) Creatinine 2.9 mg/dL (0.7-1.3) Estimated GFR (Cockcroft-Gault) 25.7 BUN/Creatinine Ratio 18 (6-20) Glucose Level 309 mg/dL (70-99) Calcium Level 8.6 mg/dL (8.5-10.1) Total Bilirubin 0.3 mg/dL (0.2-1.0) Aspartate Amino Transf (AST/SGOT) 24 U/L (15-37) Alanine Aminotransferase (ALT/SGPT) 44 U/L (16-63) Alkaline Phosphatase 147 U/L (46-116) Troponin I High Sensitivity 33 ng/L (4-75) Total Protein 7.4 g/dL (6.4-8.2) Albumin 2.9 g/dL (3.4-5.0) Albumin/Globulin Ratio 0.6 (1.0-1.7) Lipase 158 U/L (73-393) Urine Collection Type Unknown Urine Color Yellow Urine Clarity Clear Urine pH 6.5 (<5.0-8.0) Urine Specific [place] 1.015 (1.000-1.030) Urine Protein 100 mg/dL (NEG-TRACE) Urine Glucose (UA) 500 mg/dL (NEG) Urine Ketones (Stick) Negative mg/dL (NEG) Urine Blood Trace (NEG) Urine Nitrite Negative (NEG) Urine Bilirubin Negative (NEG) Urine Urobilinogen Dipstick 0.2 mg/dL (0.2 mg/dL) Urine Leukocyte Esterase Negative (NEG) Urine RBC Occ /HPF (0-2) Urine WBC 0 /HPF (0-4) Urine Bacteria 0 /HPF (0-FEW) Glucose (Fingerstick) 135 mg/dL (70-99) Test 06/01/21 10:40 06/01/21 11:20 06/01/21 11:51 SARS-CoV-2 RNA (MAREK) Negative (Negative) SARS-CoV-2 Antigen (Rapid) Negative (NEGATIVE) Sodium Level 139 mmol/L (136-145) Potassium Level 7.1 mmol/L (3.5-5.1) Chloride Level 107 mmol/L (98-107) Carbon Dioxide Level 22 mmol/L (21-32) Anion Gap 10 (6-14) Blood Urea Nitrogen 51 mg/dL (8-26) Creatinine 2.7 mg/dL (0.7-1.3) Estimated GFR (Cockcroft-Gault) 27.9 Glucose Level 209 mg/dL (70-99) Calcium Level 8.6 mg/dL (8.5-10.1) Glucose (Fingerstick) 193 mg/dL (70-99) Laboratory Tests Test 05/31/21 18:30 05/31/21 20:30 05/31/21 21:35 06/01/21 07:24 White Blood Count 7.8 x10^3/uL (4.0-11.0) Red Blood Count 4.13 x10^6/uL (4.30-5.70) Hemoglobin 13.0 g/dL (13.0-17.5) Hematocrit 39.5 % (39.0-53.0) Mean Corpuscular Volume 96 fL (79-100) Mean Corpuscular Hemoglobin 32 pg (25-35) Mean Corpuscular Hemoglobin Concent 33 g/dL (31-37) Red Cell Distribution Width 15.9 % (11.5-14.5) Platelet Count 211 x10^3/uL (140-400) Neutrophils (%) (Auto) 50 % (31-73) Lymphocytes (%) (Auto) 36 % (24-48) Monocytes (%) (Auto) 8 % (0-9) Eosinophils (%) (Auto) 5 % (0-3) Basophils (%) (Auto) 1 % (0-3) Neutrophils # (Auto) 3.9 x10^3/uL (1.8-7.7) Lymphocytes # (Auto) 2.8 x10^3/uL (1.0-4.8) Monocytes # (Auto) 0.6 x10^3/uL (0.0-1.1) Eosinophils # (Auto) 0.4 x10^3/uL (0.0-0.7) Basophils # (Auto) 0.1 x10^3/uL (0.0-0.2) Sodium Level 137 mmol/L (136-145) Potassium Level 6.3 mmol/L (3.5-5.1) 6.0 mmol/L (3.5-5.1) Chloride Level 104 mmol/L (98-107) Carbon Dioxide Level 22 mmol/L (21-32) Anion Gap 11 (6-14) Blood Urea Nitrogen 51 mg/dL (8-26) Creatinine 2.9 mg/dL (0.7-1.3) Estimated GFR (Cockcroft-Gault) 25.7 BUN/Creatinine Ratio 18 (6-20) Glucose Level 309 mg/dL (70-99) Calcium Level 8.6 mg/dL (8.5-10.1) Total Bilirubin 0.3 mg/dL (0.2-1.0) Aspartate Amino Transf (AST/SGOT) 24 U/L (15-37) Alanine Aminotransferase (ALT/SGPT) 44 U/L (16-63) Alkaline Phosphatase 147 U/L (46-116) Troponin I High Sensitivity 33 ng/L (4-75) Total Protein 7.4 g/dL (6.4-8.2) Albumin 2.9 g/dL (3.4-5.0) Albumin/Globulin Ratio 0.6 (1.0-1.7) Lipase 158 U/L (73-393) Urine Collection Type Unknown Urine Color Yellow Urine Clarity Clear Urine pH 6.5 (<5.0-8.0) Urine Specific [place] 1.015 (1.000-1.030) Urine Protein 100 mg/dL (NEG-TRACE) Urine Glucose (UA) 500 mg/dL (NEG) Urine Ketones (Stick) Negative mg/dL (NEG) Urine Blood Trace (NEG) Urine Nitrite Negative (NEG) Urine Bilirubin Negative (NEG) Urine Urobilinogen Dipstick 0.2 mg/dL (0.2 mg/dL) Urine Leukocyte Esterase Negative (NEG) Urine RBC Occ /HPF (0-2) Urine WBC 0 /HPF (0-4) Urine Bacteria 0 /HPF (0-FEW) Glucose (Fingerstick) 135 mg/dL (70-99) Test 06/01/21 10:40 06/01/21 11:20 06/01/21 11:51 SARS-CoV-2 RNA (MAREK) Negative (Negative) SARS-CoV-2 Antigen (Rapid) Negative (NEGATIVE) Sodium Level 139 mmol/L (136-145) Potassium Level 7.1 mmol/L (3.5-5.1) Chloride Level 107 mmol/L (98-107) Carbon Dioxide Level 22 mmol/L (21-32) Anion Gap 10 (6-14) Blood Urea Nitrogen 51 mg/dL (8-26) Creatinine 2.7 mg/dL (0.7-1.3) Estimated GFR (Cockcroft-Gault) 27.9 Glucose Level 209 mg/dL (70-99) Calcium Level 8.6 mg/dL (8.5-10.1) Glucose (Fingerstick) 193 mg/dL (70-99) Review All relevant outside records, renal labs, imaging studies, telemetry/EKG's were reviewed. Images Images CT abdomen Reviewed MILTON VANG MD Jun 01, 2021 14:57
--- NOTE | 2021-06-01 15:00 | NUR ---
PAtient was bladder scanned and had 130ml in bladder. No baum needed at this time.
[2021-06-01] MEDS ORDERED: SODIUM POLYSTYRENE SULFON/SORB 15 GM/60 ML ORAL.SUSP. PO ONE ×2 (15:15→17:30)
--- NOTE | 2021-06-01 16:02 | EKG ---
[facility] [address] [place] [address] Test Date: 2021-05-31 Test Time: 18:55:18 Pat Name: BRYAN WEBER Department: Room: [facility] Gender: M Premium Representative: : 1945 Requested By: GINA YUAN Order Number: [id number] Reading MD: Seamus Stern Measurements Intervals Russell Rate: 69 P: 34 NE: 196 QRS: -9 QRSD: 80 T: 17 QT: 398 QTc: 428 Interpretive Statements SINUS RHYTHM LEFTWARD AXIS QRS(T) CONTOUR ABNORMALITY CONSIDER INFERIOR MYOCARDIAL DAMAGE Electronically Signed On 06-05-2021 16:20:33 [employer]IST by Seamus Stern
[2021-06-01] MEDS: LIDOCAINE (700MG/PATCH) PATCH. TD SCH (17:30)
[2021-06-01] MEDS: HEPARIN for SUB-Q USE 5,000 UNIT/ML VIAL. SQ SCH (17:31)
[2021-06-01] MEDS: PATCH REMOVAL. MC SCH (22:12)
[2021-06-01] MEDS: INSULIN GLARGINE SYRINGE. SQ SCH (22:21)
[2021-06-02 02:47] VITALS: BP 184/86
[2021-06-02 07:14] LABS: BASO % 1 % (0-3); EOS # 0.4 x10^3/uL (0.0-0.7); EOS % 6 % (0-3); HEMATOCRIT 38.7 % (39.0-53.0); HEMOGLOBIN 12.6 g/dL (13.0-17.5); LYMPH % 28 % (24-48); MEAN CORPUSCULAR HEMOGLOBIN 31 pg (25-35); MEAN CORPUSCULAR HGB CONC 33 g/dL (31-37); MEAN CORPUSCULAR VOLUME 95 fL (79-100); MONO # 0.7 x10^3/uL (0.0-1.1); MONO % 10 % (0-9); NEUT # 3.9 x10^3/uL (1.8-7.7); NEUT % 56 % (31-73); PLATELET COUNT 195 x10^3/uL (140-400); RED BLOOD COUNT 4.07 x10^6/uL (4.30-5.70); RED CELL DISTRIBUTION WIDTH 15.9 % (11.5-14.5)
[2021-06-02 07:31] LABS: ALBUMIN 2.6 g/dL (3.4-5.0); ALBUMIN/GLOBULIN RATIO 0.6 (1.0-1.7); CREATININE 2.5 mg/dL (0.7-1.3); GFR 30.5; POTASSIUM 5.9 mmol/L (3.5-5.1); TOTAL BILIRUBIN 0.4 mg/dL (0.2-1.0); TOTAL PROTEIN 6.7 g/dL (6.4-8.2)
[2021-06-02 08:00] VITALS: BP 177/86
[2021-06-02] MEDS: INSULIN LISPRO 300 UNITS/3 ML VIAL. SQ SCH ×6 (08:00→17:44)
[2021-06-02] MEDS: FLUTICASONE 50MCG/NASAL SPRAY 16GM BOTTLE. NS SCH (08:45)
[2021-06-02] MEDS: SODIUM BICARBONATE 650 MG TABLET. PO SCH ×2 (08:45→21:14)
[2021-06-02] MEDS: ASPIRIN CHEWABLE 81 MG TABLET. PO SCH (08:45)
[2021-06-02] MEDS: LIDOCAINE (700MG/PATCH) PATCH. TD SCH (08:45)
[2021-06-02] MEDS: METOPROLOL TART IMMED RELEASE 50 MG TABLET. PO SCH ×2 (08:46→21:17)
[2021-06-02] MEDS: PANTOPRAZOLE 40 MG TABLET.DR. PO SCH (08:46)
[2021-06-02] MEDS: BISACODYL 10 MG SUPP.RECT. RC PRN (08:46)
[2021-06-02] MEDS: ATORVASTATIN CALCIUM 40 MG TABLET. PO SCH (08:46)
[2021-06-02] MEDS: FOLIC/VIT B COMP W-C (RENAL) TABLET. PO SCH (08:46)
[2021-06-02] MEDS: HEPARIN for SUB-Q USE 5,000 UNIT/ML VIAL. SQ SCH ×2 (08:50→21:15)
[2021-06-02] MEDS: ALLOPURINOL 100 MG TABLET. PO SCH (08:51)
[2021-06-02] MEDS: LINAGLIPTIN 5 MG TABLET PO SCH (08:52)
[2021-06-02] MEDS ORDERED: FUROSEMIDE 40 MG/4 ML VIAL. IVP ONE (09:15)
[2021-06-02] MEDS ORDERED: IV 1/2 NORMAL SALINE 1,000 ML IV ONE (09:15)
--- NOTE | 2021-06-02 09:57 | PDOC ---
[employer] PROGRESS NOTE Date of Service DOS: DATE: 06/02/21 TIME: 09:56 Chief Complaint Chief Complaint critical hyperkalemia acute on chronic renal failure, ATN on CKD3 obese, BMI 31 cognitive decline, he is unaware of his medical problems, lives in [facility], he reports he has never driven, still does his finances, takes bicarb PO, so likely chronic problem Dm2, on insulin costochrondritis, better weakness, PT and OT History of Present Illness History of Present Illness 06/02, feels better, no chest pain today, more alert, still weak, need PT and OT eval, lives in assisted living, consider skilled, may imrpoved, potassium better, still high, will give Lasix and IV fluid today Vitals/I&O Vitals/I&O: Vital Signs Date Time Temp Pulse Resp B/P (MAP) Pulse Ox O2 Delivery O2 Flow Rate FiO2 06/02/21 08:46 85 177/86 06/02/21 08:00 98.2 18 96 Room Air 98.2 I & O 06/01/21 06/01/21 06/02/21 15:00 23:00 07:00 Intake Total 1842 ml Output Total 625 ml 400 ml 1200 ml Balance -625 ml 1442 ml -1200 ml Physical Exam General: Alert, Oriented X3, Cooperative, No acute distress Heart: Regular rate, No murmurs Lungs: Clear Abdomen: Normal bowel sounds, Soft Extremities: No clubbing Skin: No breakdown Labs Labs: Laboratory Tests Test 06/01/21 10:40 06/01/21 11:20 06/01/21 11:51 06/01/21 16:36 SARS-CoV-2 RNA (MAREK) Negative (Negative) SARS-CoV-2 Antigen (Rapid) Negative (NEGATIVE) Sodium Level 139 mmol/L (136-145) Potassium Level 7.1 mmol/L (3.5-5.1) Chloride Level 107 mmol/L (98-107) Carbon Dioxide Level 22 mmol/L (21-32) Anion Gap 10 (6-14) Blood Urea Nitrogen 51 mg/dL (8-26) Creatinine 2.7 mg/dL (0.7-1.3) Estimated GFR (Cockcroft-Gault) 27.9 Glucose Level 209 mg/dL (70-99) Calcium Level 8.6 mg/dL (8.5-10.1) Glucose (Fingerstick) 193 mg/dL (70-99) 114 mg/dL (70-99) Test 06/01/21 19:05 06/02/21 05:40 06/02/21 07:48 Glucose (Fingerstick) 115 mg/dL (70-99) 122 mg/dL (70-99) White Blood Count 7.0 x10^3/uL (4.0-11.0) Red Blood Count 4.07 x10^6/uL (4.30-5.70) Hemoglobin 12.6 g/dL (13.0-17.5) Hematocrit 38.7 % (39.0-53.0) Mean Corpuscular Volume 95 fL (79-100) Mean Corpuscular Hemoglobin 31 pg (25-35) Mean Corpuscular Hemoglobin Concent 33 g/dL (31-37) Red Cell Distribution Width 15.9 % (11.5-14.5) Platelet Count 195 x10^3/uL (140-400) Neutrophils (%) (Auto) 56 % (31-73) Lymphocytes (%) (Auto) 28 % (24-48) Monocytes (%) (Auto) 10 % (0-9) Eosinophils (%) (Auto) 6 % (0-3) Basophils (%) (Auto) 1 % (0-3) Neutrophils # (Auto) 3.9 x10^3/uL (1.8-7.7) Lymphocytes # (Auto) 2.0 x10^3/uL (1.0-4.8) Monocytes # (Auto) 0.7 x10^3/uL (0.0-1.1) Eosinophils # (Auto) 0.4 x10^3/uL (0.0-0.7) Basophils # (Auto) 0.0 x10^3/uL (0.0-0.2) Sodium Level 142 mmol/L (136-145) Potassium Level 5.9 mmol/L (3.5-5.1) Chloride Level 108 mmol/L (98-107) Carbon Dioxide Level 23 mmol/L (21-32) Anion Gap 11 (6-14) Blood Urea Nitrogen 49 mg/dL (8-26) Creatinine 2.5 mg/dL (0.7-1.3) Estimated GFR (Cockcroft-Gault) 30.5 BUN/Creatinine Ratio 20 (6-20) Glucose Level 155 mg/dL (70-99) Calcium Level 9.0 mg/dL (8.5-10.1) Total Bilirubin 0.4 mg/dL (0.2-1.0) Aspartate Amino Transf (AST/SGOT) 34 U/L (15-37) Alanine Aminotransferase (ALT/SGPT) 43 U/L (16-63) Alkaline Phosphatase 126 U/L (46-116) Total Protein 6.7 g/dL (6.4-8.2) Albumin 2.6 g/dL (3.4-5.0) Albumin/Globulin Ratio 0.6 (1.0-1.7) Assessment and Plan Assessmemt and Plan Problems Medical Problems: (1) Abdominal pain Status: Acute (2) Acute renal failure Status: Acute (3) Hyperkalemia Status: Acute Comment Review of Relevant I have reviewed the following items clara (where applicable) has been applied. Medications: Current Medications Medications (Trade) Dose Ordered Sig/Gray Route PRN Reason Start Time Stop Time Status Last Admin Dose Admin Insulin Glargine (Lantus Syringe) 27 unit QHS SQ 06/01/21 21:00 06/01/21 22:21 Sodium Bicarbonate 50 meq/Sodium Chloride 1,050 ml @ 100 mls/hr 1X ONCE IV 06/01/21 10:00 06/01/21 20:29 DC 06/01/21 09:32 Multi-Ingredient Mouthwash/Gargle (Gi Cocktail) 20 ml 1X ONCE PO 06/01/21 11:15 06/01/21 13:04 DC 06/01/21 11:30 Insulin Human Regular (HumuLIN R VIAL) 10 unit 1X ONCE IV 06/01/21 13:15 06/01/21 13:16 DC 06/01/21 13:15 Calcium Gluconate (Calcium Gluconate) 1,000 mg 1X ONCE IV 06/01/21 13:15 06/01/21 13:16 DC 06/01/21 13:15 Dextrose (Dextrose 50%-Water Syringe) 25 gm 1X ONCE IV 06/01/21 13:15 06/01/21 13:16 DC 06/01/21 13:15 Sodium Polystyrene Sulfonate (Kayexalate) 15 gm 1X ONCE PO 06/01/21 15:15 06/01/21 15:16 DC 06/01/21 15:19 Lidocaine (Lidoderm) 1 patch DAILY TD 06/01/21 15:45 06/02/21 08:45 Miscellaneous (Lidoderm Patch Removal) 1 ea QHS 06/01/21 21:00 06/01/21 22:12 Heparin Sodium (Porcine) (Heparin Sodium) 5,000 unit BID SQ 06/01/21 16:00 06/02/21 08:50 Insulin Human Lispro (HumaLOG) 10 units TIDWMEALS SQ 06/01/21 17:00 06/02/21 08:48 Sodium Polystyrene Sulfonate (Kayexalate) 15 gm 1X ONCE PO 06/01/21 17:30 06/01/21 17:32 DC 06/01/21 17:30 Justifications for Admission Other Justification DARIANA KING MD Jun 02, 2021 09:57
--- NOTE | 2021-06-02 10:02 | PDOC ---
DATE OF SERVICE DATE: 06/02/21 TIME: 09:57 SUBJECTIVE ROS Stable, sitting up in the chair No SOB, No N/V OBJECTIVE Vital Signs Vital Signs Date Time Temp Pulse Resp B/P (MAP) Pulse Ox O2 Delivery O2 Flow Rate FiO2 06/02/21 08:46 85 177/86 06/02/21 08:00 98.2 18 96 Room Air 98.2 I & 0 Intake and Output 06/02/21 07:00 Intake Total 1842 ml Output Total 2225 ml Balance -383 ml IV Total 1000 ml Blood Product IV Normal Saline Flush 842 ml Output Urine Total 2225 ml PHYSICAL EXAM Physical Exam General: NAD HEENT: PERRLA, om OM moist Neck Supple Lungs: CTA, non labored Heart: S1S2, Abdomen: Normal bowel sounds, Soft Extremities: No clubbing, No edema Skin: No rash Neuro: grossly normal, No baum, DIAGNOSIS/ASSESSMENT Assessment & Plan JOSEPHINE -Vasomotor , Improving . CT scan-No perinephric inflammation or hydronephrosis. No renal or ureteral calculi are identified. UA unremarkable. Renal US unremarkable . Cr trending down .Supportive care, monitor hydration , avoid Nephrotoxins , strict I/o CKD Stage 3 B -He had initial Consult appt with us in august 2020, he didnt keep his appt. I reviewed records from our Office, Cr in Feb 2020 was 2.3 , baseline 1.6-2.5. JOSEPHINE in 2013 Cr 3.9 HyperKalemia - No EKG changes ; , denies any use of K supplements or any changes in meds , still elevated but improved , Discussed treatment plan with nursing Abdominal Pain POA- CT of abdomen and pelvis without contrast-Large and small bowel are unremarkable. No free intra-abdominal air fluid. No obstruction. Cognitive decline HTN - Was on Lisinopril in May 2020- no interval records available.BP high, antihypertensives COMMENT/RELEVANT DATA Meds Current Medications Medications (Trade) Dose Ordered Sig/Gray Start Time Stop Time Status Last Admin Dose Admin Acetaminophen (Tylenol) 650 mg PRN Q6HRS PRN 06/01/21 09:00 Allopurinol (Zyloprim) 100 mg DAILY 06/01/21 09:00 06/02/21 08:51 100 MG Aspirin (Aspirin Chewable) 81 mg DAILY 06/01/21 09:00 06/02/21 08:45 81 MG Atorvastatin Calcium (Lipitor) 40 mg DAILY 06/01/21 09:00 06/02/21 08:46 40 MG Bisacodyl (Dulcolax Supp) 10 mg PRN DAILY PRN 06/01/21 09:00 06/02/21 08:46 10 MG Calcium Gluconate (Calcium Gluconate) 1,000 mg 1X ONCE 06/01/21 13:15 06/01/21 13:16 DC 06/01/21 13:15 1,000 MG Dextrose (Dextrose 50%-Water Syringe) 25 gm 1X ONCE 06/01/21 13:15 06/01/21 13:16 DC 06/01/21 13:15 25 GM Fluticasone Propionate (Flonase) 2 spray DAILY 06/01/21 09:00 06/02/21 08:45 2 SPRAY Furosemide (Lasix) 40 mg 1X ONCE 06/02/21 09:15 06/02/21 09:16 DC Heparin Sodium (Porcine) (Heparin Sodium) 5,000 unit BID 06/01/21 16:00 06/02/21 08:50 5,000 UNIT Insulin Glargine (Lantus Syringe) 27 unit QHS 06/01/21 21:00 06/01/21 22:21 27 UNIT Insulin Human Lispro (HumaLOG) 10 units TIDWMEALS 06/01/21 17:00 06/02/21 08:48 10 UNITS Insulin Human Regular (HumuLIN R VIAL) 10 unit 1X ONCE 06/01/21 13:15 06/01/21 13:16 DC 06/01/21 13:15 10 UNIT Lidocaine (Lidoderm) 1 patch DAILY 06/01/21 15:45 06/02/21 08:45 1 PATCH Linagliptin (Tradjenta) 5 mg DAILY 06/01/21 09:00 06/02/21 08:52 5 MG Metoprolol Tartrate (Lopressor) 50 mg BID 06/01/21 09:00 UNV Miscellaneous (Lidoderm Patch Removal) 1 ea QHS 06/01/21 21:00 06/01/21 22:12 1 EA Morphine Sulfate (Morphine Sulfate) 4 mg 1X STAT 05/31/21 19:51 05/31/21 19:53 DC 05/31/21 20:33 4 MG Multi-Ingredient Mouthwash/Gargle (Gi Cocktail) 20 ml 1X ONCE 06/01/21 11:15 06/01/21 13:04 DC 06/01/21 11:30 20 ML Nystatin (Mycostatin) 1 trini PRN BID PRN 06/01/21 09:00 Ondansetron HCl (Zofran) 4 mg PRN Q8HRS PRN 05/31/21 22:15 06/01/21 22:14 DC Pantoprazole Sodium (Protonix) 40 mg DAILYAC 06/01/21 09:00 06/02/21 08:46 40 MG Senna/Docusate Sodium (Senna Plus) 2 tab PRN QHS PRN 06/01/21 09:00 Sodium Bicarbonate 50 meq/Sodium Chloride 1,050 ml @ 100 mls/hr 1X ONCE 06/01/21 10:00 06/01/21 20:29 DC 06/01/21 09:32 100 MLS/HR Sodium Polystyrene Sulfonate (Kayexalate) 15 gm 1X ONCE 06/01/21 17:30 06/01/21 17:32 DC 06/01/21 17:30 15 GM Sodium Bicarbonate (Sodium Bicarbonate) 650 mg BID 06/01/21 09:00 06/02/21 08:45 650 MG Sodium Chloride 1,000 ml @ 100 mls/hr 1X ONCE 06/02/21 09:15 06/02/21 19:14 Vitamin B Complex/ Vitamin C (Jocy-Keke) 1 tab DAILY 06/01/21 09:00 06/02/21 08:46 1 TAB Lab Laboratory Tests Test 06/01/21 10:40 06/01/21 11:20 06/01/21 11:51 06/01/21 16:36 SARS-CoV-2 RNA (MAREK) Negative (Negative) SARS-CoV-2 Antigen (Rapid) Negative (NEGATIVE) Sodium Level 139 mmol/L (136-145) Potassium Level 7.1 mmol/L (3.5-5.1) Chloride Level 107 mmol/L (98-107) Carbon Dioxide Level 22 mmol/L (21-32) Anion Gap 10 (6-14) Blood Urea Nitrogen 51 mg/dL (8-26) Creatinine 2.7 mg/dL (0.7-1.3) Estimated GFR (Cockcroft-Gault) 27.9 Glucose Level 209 mg/dL (70-99) Calcium Level 8.6 mg/dL (8.5-10.1) Glucose (Fingerstick) 193 mg/dL (70-99) 114 mg/dL (70-99) Test 06/01/21 19:05 06/02/21 05:40 06/02/21 07:48 Glucose (Fingerstick) 115 mg/dL (70-99) 122 mg/dL (70-99) White Blood Count 7.0 x10^3/uL (4.0-11.0) Red Blood Count 4.07 x10^6/uL (4.30-5.70) Hemoglobin 12.6 g/dL (13.0-17.5) Hematocrit 38.7 % (39.0-53.0) Mean Corpuscular Volume 95 fL (79-100) Mean Corpuscular Hemoglobin 31 pg (25-35) Mean Corpuscular Hemoglobin Concent 33 g/dL (31-37) Red Cell Distribution Width 15.9 % (11.5-14.5) Platelet Count 195 x10^3/uL (140-400) Neutrophils (%) (Auto) 56 % (31-73) Lymphocytes (%) (Auto) 28 % (24-48) Monocytes (%) (Auto) 10 % (0-9) Eosinophils (%) (Auto) 6 % (0-3) Basophils (%) (Auto) 1 % (0-3) Neutrophils # (Auto) 3.9 x10^3/uL (1.8-7.7) Lymphocytes # (Auto) 2.0 x10^3/uL (1.0-4.8) Monocytes # (Auto) 0.7 x10^3/uL (0.0-1.1) Eosinophils # (Auto) 0.4 x10^3/uL (0.0-0.7) Basophils # (Auto) 0.0 x10^3/uL (0.0-0.2) Sodium Level 142 mmol/L (136-145) Potassium Level 5.9 mmol/L (3.5-5.1) Chloride Level 108 mmol/L (98-107) Carbon Dioxide Level 23 mmol/L (21-32) Anion Gap 11 (6-14) Blood Urea Nitrogen 49 mg/dL (8-26) Creatinine 2.5 mg/dL (0.7-1.3) Estimated GFR (Cockcroft-Gault) 30.5 BUN/Creatinine Ratio 20 (6-20) Glucose Level 155 mg/dL (70-99) Calcium Level 9.0 mg/dL (8.5-10.1) Total Bilirubin 0.4 mg/dL (0.2-1.0) Aspartate Amino Transf (AST/SGOT) 34 U/L (15-37) Alanine Aminotransferase (ALT/SGPT) 43 U/L (16-63) Alkaline Phosphatase 126 U/L (46-116) Total Protein 6.7 g/dL (6.4-8.2) Albumin 2.6 g/dL (3.4-5.0) Albumin/Globulin Ratio 0.6 (1.0-1.7) Results All relevant outside records, renal labs, imaging studies, telemetry/EKG's were reviewed. Justicifation of Admission Dx: Justifications for Admission: Justification of Admission Dx: Yes Chronic Renal Failure: Electrolyte Abnormality MILTON VANG MD Jun 02, 2021 10:02
[2021-06-02 11:26] VITALS: BP 159/83
[2021-06-02 15:03] VITALS: BP 139/78
--- NOTE | 2021-06-02 16:38 | NUR ---
SW following. Discussed with RN, therapy recommended SNF. SW met with pt, he would rather return to [facility] with home health. Referral faxed to [facility]. Notified of possible discharge home tomorrow. RN notified. LETICIA will continue to follow.
[2021-06-02 18:38] LABS: CALCIUM 8.6 mg/dL (8.5-10.1); CREATININE 2.7 mg/dL (0.7-1.3); GFR 27.9; POTASSIUM 4.9 mmol/L (3.5-5.1)
[2021-06-02 19:00] VITALS: BP 159/69
[2021-06-02] MEDS: PATCH REMOVAL. MC SCH (21:00)
[2021-06-02] MEDS: INSULIN GLARGINE SYRINGE. SQ SCH (21:27)
[2021-06-02 23:00] VITALS: BP 143/71
[2021-06-03 03:00] VITALS: BP 196/82
[2021-06-03] MEDS ORDERED: hydrALAZINE 20 MG/ML VIAL. IVP PRN (04:00)
[2021-06-03 07:00] VITALS: BP 182/88
[2021-06-03] MEDS: INSULIN LISPRO 300 UNITS/3 ML VIAL. SQ SCH ×4 (07:43→12:26)
[2021-06-03] MEDS: FLUTICASONE 50MCG/NASAL SPRAY 16GM BOTTLE. NS SCH (07:43)
[2021-06-03 07:50] LABS: CALCIUM 8.8 mg/dL (8.5-10.1); CREATININE 2.4 mg/dL (0.7-1.3)
[2021-06-03 07:57] LABS: POTASSIUM 5.1 mmol/L (3.5-5.1)
[2021-06-03] MEDS: LIDOCAINE (700MG/PATCH) PATCH. TD SCH (08:25)
[2021-06-03] MEDS: FOLIC/VIT B COMP W-C (RENAL) TABLET. PO SCH (08:25)
[2021-06-03] MEDS: ATORVASTATIN CALCIUM 40 MG TABLET. PO SCH (08:25)
[2021-06-03] MEDS: SODIUM BICARBONATE 650 MG TABLET. PO SCH (08:25)
[2021-06-03] MEDS: ALLOPURINOL 100 MG TABLET. PO SCH (08:26)
[2021-06-03] MEDS: ASPIRIN CHEWABLE 81 MG TABLET. PO SCH (08:26)
[2021-06-03] MEDS: METOPROLOL TART IMMED RELEASE 50 MG TABLET. PO SCH (08:27)
[2021-06-03] MEDS: BISACODYL 10 MG SUPP.RECT. RC PRN (08:27)
[2021-06-03] MEDS: LINAGLIPTIN 5 MG TABLET PO SCH (08:27)
[2021-06-03] MEDS: PANTOPRAZOLE 40 MG TABLET.DR. PO SCH (08:27)
[2021-06-03] MEDS: HEPARIN for SUB-Q USE 5,000 UNIT/ML VIAL. SQ SCH (08:55)
--- NOTE | 2021-06-03 10:31 | SNU/HH DC ---
DISCHARGE WITH HOME HEALTH DISCHARGE INFORMATION: Discharge Date: Jun 03, 2021 Final Diagnosis: HYPERKALEMIA RENAL FAILURE, ACUTE ON CHROINC ckD 3 OBESE, bmi 31 WEAKNESS, DEBILITY Problems Medical Problems: (1) Abdominal pain Status: Acute (2) Acute renal failure Status: Acute (3) Hyperkalemia Status: Acute Condition on Discharge: Stable CODE STATUS: Code Status: Full HOME HEALTH: Face to Face: I certify this patient is under my care and that I had a face to face encounter that meets the physician face to face encounter requirements with this patient on 06/03 Medical Complications: COPD, Other RN For Eval/Treatment: Yes Physical Therapy For: Evalulation/Treatment Occupational Therapy For: Evaluation/Treatment Pt Meets Homebound Status: Limited distance walking, Other: (WEAKNESS) POST DISCHARGE ORDERS: DIET AFTER DISCHARGE: Renal FOLLOW-UP: Follow up with: renal Follow Up With: primary care TREATMENT/EQUIPMENT ORDERS: Adaptive Equipment Issued: None CERTIFICATION STATEMENT: Certification Statement: Certification Statement: Based on the above finding, I certify that this patient is confined to the home and needs intermittent detention care, physical therapy and/or speech therapy, or continues to need occupational therapy.~ This patient is under my care, and I have initiated the establishment of the plan of care.~ This patient will be followed by myself or a community physician who will periodically review the plan of care. Home Meds Reported Medications Nystatin (NYSTATIN) 15 Gm Cream..g., 1 [place] TP PRN BID PRN for SKIN PROTECTION, EACH 06/01/21 Sennosides/Docusate Sodium (SENNA PLUS TABLET) 1 Each Tablet, 2 EACH PO PRN QHS PRN for CONSTIPATION, TAB 06/01/21 Guaifenesin/Dextromethorphan (MUCUS RELIEF DM TABLET) 1 Each Tablet, 1 EACH PO PRN BID PRN for COUGH, TAB 06/01/21 Mag Hydrox/Al Hydrox/Simeth (MINTOX PLUS TABLET CHEWABLE) 1 Each Tab.chew, 2 EACH PO PRN Q3HRS PRN for INDIGESTION, TAB.CHEW 06/01/21 Loratadine (LORATADINE) 10 Mg Tablet, 10 MG PO PRN DAILY PRN for ALLERGIES, TAB 06/01/21 Loperamide Hcl (LOPERAMIDE) 2 Mg Tablet, 2 MG PO PRN Q4HRS PRN for DIARRHEA, TAB 06/01/21 Calcium Carbonate (TUMS) 300 Mg Tab.chew, 1000 MG PO PRN Q4HRS PRN for INDIGESTION, TAB.CHEW 06/01/21 Bisacodyl (DULCOLAX) 10 Mg Supp.rect, 10 MG RC PRN DAILY PRN for CONSTIPATION, SUPP.RECT 0 Refills 06/01/21 Albuterol Sulfate (PROAIR HFA INHALER) 8.5 Gm Hfa.aer.ad, 2 PUFF INH PRN Q4HRS PRN for SHORTNESS OF BREATH, EACH 0 Refills 06/01/21 Acetaminophen (ACETAMINOPHEN) 325 Mg Tablet, 650 MG PO PRN Q6HRS PRN for MILD PAIN / TEMP > 100.3'F, TAB 06/01/21 Insulin Aspart (NOVOLOG FLEXPEN) 100 Unit/1 Ml Insuln.pen, 8 UNIT SQ TIDWMEALS for DM, SYR 06/01/21 Insulin Detemir (Levemir Flextouch) 100 Unit/1 Ml Insuln.pen, 27 UNIT SQ QHS for DM, SYR 06/01/21 Linagliptin (TRADJENTA) 5 Mg Tablet, 5 MG PO DAILY for TYPE 2 DIABETES, TAB 06/01/21 Sodium Bicarbonate (SODIUM BICARBONATE) 650 Mg Tablet, 650 MG PO BID for HD, TAB 06/01/21 Pantoprazole Sodium (PANTOPRAZOLE SODIUM ) 40 Mg Tablet.dr, 40 MG PO DAILYAC for GERD, TAB 06/01/21 Folic Acid/Vitamin B Comp W-C (NEPHRO-KILEY TABLET) 0.8 Mg Tablet, 1 TAB PO DAILY for SUPPLEMENT, TAB 06/01/21 Metoprolol Tartrate (METOPROLOL TARTRATE) 50 Mg Tablet, 50 MG PO BID for FOR HYPERTENSION, #60 TAB 0 Refills 06/01/21 Fluticasone Propionate (FLUTICASONE PROPIONATE NASAL SPRAY) 16 Gm Hanson.susp, 2 SPRAY NS DAILY for ALLERGIES, EACH 06/01/21 Atorvastatin Calcium (ATORVASTATIN CALCIUM) 40 Mg Tablet, 40 MG PO DAILY for FOR CHOLESTEROL, #30 TAB 0 Refills 06/01/21 Aspirin (ASPIRIN) 81 Mg Tab.chew, 81 MG PO DAILY for PPX, TAB.CHEW 06/01/21 Allopurinol (ALLOPURINOL) 100 Mg Tablet, 100 MG PO DAILY for GOUT, TAB 06/01/21 DARIANA KING MD Jun 03, 2021 10:31
[2021-06-03 11:03] VITALS: BP 130/65
--- NOTE | 2021-06-03 13:04 | PDOC ---
DATE OF SERVICE DATE: 06/03/21 TIME: 13:03 SUBJECTIVE ROS Stable, No SOB, No N/V OBJECTIVE Vital Signs Vital Signs Date Time Temp Pulse Resp B/P (MAP) Pulse Ox O2 Delivery O2 Flow Rate FiO2 06/03/21 11:03 98.1 82 22 130/65 (86) 94 98.1 06/03/21 08:00 Room Air I & 0 Intake and Output 06/03/21 07:00 Intake Total 1670 ml Output Total 1100 ml Balance 570 ml Intake Oral 670 ml IV Total 1000 ml Output Urine Total 1100 ml # Bowel Movements 3 PHYSICAL EXAM Physical Exam General: NAD HEENT: PERRLA, om OM moist Neck Supple Lungs: CTA, non labored Heart: S1S2, Abdomen: Normal bowel sounds, Soft Extremities: No clubbing, No edema Skin: No rash Neuro: grossly normal, No baum, DIAGNOSIS/ASSESSMENT Assessment & Plan JOSEPHINE -Vasomotor , Improving . CT scan-No perinephric inflammation or hydronephrosis. No renal or ureteral calculi are identified. UA unremarkable. Renal US unremarkable . Cr trending down, back to his baseline .Supportive care, hydration , avoid Nephrotoxins , FU with nephrology as OP (Non urgent/Routine appt) CKD Stage 3 B -He had initial Consult appt with us in august 2020, he didnt keep his appt. I reviewed records from our Office, Cr in Feb 2020 was 2.3 , baseline 1.6-2.5. JOSEPHINE in 2013 Cr 3.9 HyperKalemia - No EKG changes ; , denies any use of K supplements or any changes in meds , Normal today Abdominal Pain POA- CT of abdomen and pelvis without contrast-Large and small bowel are unremarkable. No free intra-abdominal air fluid. No obstruction. Cognitive decline HTN - Was on Lisinopril in May 2020- no interval records available.BP high, antihypertensives COMMENT/RELEVANT DATA Meds Current Medications Medications (Trade) Dose Ordered Sig/Gray Start Time Stop Time Status Last Admin Dose Admin Acetaminophen (Tylenol) 650 mg PRN Q6HRS PRN 06/01/21 09:00 Allopurinol (Zyloprim) 100 mg DAILY 06/01/21 09:00 06/03/21 08:26 100 MG Aspirin (Aspirin Chewable) 81 mg DAILY 06/01/21 09:00 06/03/21 08:26 81 MG Atorvastatin Calcium (Lipitor) 40 mg DAILY 06/01/21 09:00 06/03/21 08:25 40 MG Bisacodyl (Dulcolax Supp) 10 mg PRN DAILY PRN 06/01/21 09:00 06/03/21 08:27 10 MG Calcium Gluconate (Calcium Gluconate) 1,000 mg 1X ONCE 06/01/21 13:15 06/01/21 13:16 DC 06/01/21 13:15 1,000 MG Dextrose (Dextrose 50%-Water Syringe) 25 gm 1X ONCE 06/01/21 13:15 06/01/21 13:16 DC 06/01/21 13:15 25 GM Fluticasone Propionate (Flonase) 2 spray DAILY 06/01/21 09:00 06/02/21 08:45 2 SPRAY Furosemide (Lasix) 40 mg 1X ONCE 06/02/21 09:15 06/02/21 09:16 DC 06/02/21 10:24 40 MG Heparin Sodium (Porcine) (Heparin Sodium) 5,000 unit BID 06/01/21 16:00 06/03/21 08:55 5,000 UNIT Hydralazine HCl (Apresoline Inj) 10 mg PRN Q6HRS PRN 06/03/21 04:00 06/03/21 05:09 10 MG Insulin Glargine (Lantus Syringe) 27 unit QHS 06/01/21 21:00 06/02/21 21:27 27 UNIT Insulin Human Lispro (HumaLOG) 10 units TIDWMEALS 06/01/21 17:00 06/03/21 12:26 10 UNITS Insulin Human Regular (HumuLIN R VIAL) 10 unit 1X ONCE 06/01/21 13:15 06/01/21 13:16 DC 06/01/21 13:15 10 UNIT Lidocaine (Lidoderm) 1 patch DAILY 06/01/21 15:45 06/03/21 08:25 1 PATCH Linagliptin (Tradjenta) 5 mg DAILY 06/01/21 09:00 06/03/21 08:27 5 MG Metoprolol Tartrate (Lopressor) 50 mg BID 06/01/21 09:00 UNV Miscellaneous (Lidoderm Patch Removal) 1 ea QHS 06/01/21 21:00 06/02/21 21:00 1 EA Morphine Sulfate (Morphine Sulfate) 4 mg 1X STAT 05/31/21 19:51 05/31/21 19:53 DC 05/31/21 20:33 4 MG Multi-Ingredient Mouthwash/Gargle (Gi Cocktail) 20 ml 1X ONCE 06/01/21 11:15 06/01/21 13:04 DC 06/01/21 11:30 20 ML Nystatin (Mycostatin) 1 trini PRN BID PRN 06/01/21 09:00 Ondansetron HCl (Zofran) 4 mg PRN Q8HRS PRN 05/31/21 22:15 06/01/21 22:14 DC Pantoprazole Sodium (Protonix) 40 mg DAILYAC 06/01/21 09:00 06/03/21 08:27 40 MG Senna/Docusate Sodium (Senna Plus) 2 tab PRN QHS PRN 06/01/21 09:00 Sodium Bicarbonate 50 meq/Sodium Chloride 1,050 ml @ 100 mls/hr 1X ONCE 06/01/21 10:00 06/01/21 20:29 DC 06/01/21 09:32 100 MLS/HR Sodium Polystyrene Sulfonate (Kayexalate) 15 gm 1X ONCE 06/01/21 17:30 06/01/21 17:32 DC 06/01/21 17:30 15 GM Sodium Bicarbonate (Sodium Bicarbonate) 650 mg BID 06/01/21 09:00 06/03/21 08:25 650 MG Sodium Chloride 1,000 ml @ 100 mls/hr 1X ONCE 06/02/21 09:15 06/02/21 19:14 DC 06/02/21 10:50 100 MLS/HR Vitamin B Complex/ Vitamin C (Jocy-Keke) 1 tab DAILY 06/01/21 09:00 06/03/21 08:25 1 TAB Lab Laboratory Tests Test 06/02/21 16:39 06/02/21 18:10 06/02/21 19:15 06/03/21 05:50 Glucose (Fingerstick) 155 mg/dL (70-99) 252 mg/dL (70-99) Sodium Level 138 mmol/L (136-145) 141 mmol/L (136-145) Potassium Level 4.9 mmol/L (3.5-5.1) 5.1 mmol/L (3.5-5.1) Chloride Level 104 mmol/L (98-107) 105 mmol/L (98-107) Carbon Dioxide Level 22 mmol/L (21-32) 19 mmol/L (21-32) Anion Gap 12 (6-14) 17 (6-14) Blood Urea Nitrogen 53 mg/dL (8-26) 54 mg/dL (8-26) Creatinine 2.7 mg/dL (0.7-1.3) 2.4 mg/dL (0.7-1.3) Estimated GFR (Cockcroft-Gault) 27.9 32.0 Glucose Level 203 mg/dL (70-99) 103 mg/dL (70-99) Calcium Level 8.6 mg/dL (8.5-10.1) 8.8 mg/dL (8.5-10.1) Test 06/03/21 07:13 06/03/21 12:06 Glucose (Fingerstick) 129 mg/dL (70-99) 189 mg/dL (70-99) Results All relevant outside records, renal labs, imaging studies, telemetry/EKG's were reviewed. Justicifation of Admission Dx: Justifications for Admission: Justification of Admission Dx: Yes Chronic Renal Failure: Electrolyte Abnormality MILTON VANG MD Jun 03, 2021 13:04
--- NOTE | 2021-06-03 13:33 | PDOC3 ---
Discharge Summary Visit Information Date of Admission: May 31, 2021 Date of Discharge: Jun 03, 2021 Final Diagnosis critical hyperkalemia acute hyperkalemia in CKD acute on chronic renal failure, ATN on CKD3 obese, BMI 31 cognitive decline, chronic metabolic acidosi Dm2, on insulin costochrondritis, weakness, PT and OT Problems Medical Problems: (1) Abdominal pain Status: Acute (2) Acute renal failure Status: Acute (3) Hyperkalemia Status: Acute Brief Hospital Course Allergies Allergies Coded Allergies Type Severity Reaction Last Updated Verified No Known Drug Allergies 05/31/21 No Vital Signs Vital Signs Date Time Temp Pulse Resp B/P (MAP) Pulse Ox O2 Delivery O2 Flow Rate FiO2 06/03/21 11:03 98.1 82 22 130/65 (86) 94 98.1 06/03/21 08:00 Room Air Lab Results Laboratory Tests Test 06/01/21 16:36 06/01/21 19:05 06/02/21 05:40 06/02/21 07:48 Glucose (Fingerstick) 114 mg/dL (70-99) 115 mg/dL (70-99) 122 mg/dL (70-99) White Blood Count 7.0 x10^3/uL (4.0-11.0) Red Blood Count 4.07 x10^6/uL (4.30-5.70) Hemoglobin 12.6 g/dL (13.0-17.5) Hematocrit 38.7 % (39.0-53.0) Mean Corpuscular Volume 95 fL (79-100) Mean Corpuscular Hemoglobin 31 pg (25-35) Mean Corpuscular Hemoglobin Concent 33 g/dL (31-37) Red Cell Distribution Width 15.9 % (11.5-14.5) Platelet Count 195 x10^3/uL (140-400) Neutrophils (%) (Auto) 56 % (31-73) Lymphocytes (%) (Auto) 28 % (24-48) Monocytes (%) (Auto) 10 % (0-9) Eosinophils (%) (Auto) 6 % (0-3) Basophils (%) (Auto) 1 % (0-3) Neutrophils # (Auto) 3.9 x10^3/uL (1.8-7.7) Lymphocytes # (Auto) 2.0 x10^3/uL (1.0-4.8) Monocytes # (Auto) 0.7 x10^3/uL (0.0-1.1) Eosinophils # (Auto) 0.4 x10^3/uL (0.0-0.7) Basophils # (Auto) 0.0 x10^3/uL (0.0-0.2) Sodium Level 142 mmol/L (136-145) Potassium Level 5.9 mmol/L (3.5-5.1) Chloride Level 108 mmol/L (98-107) Carbon Dioxide Level 23 mmol/L (21-32) Anion Gap 11 (6-14) Blood Urea Nitrogen 49 mg/dL (8-26) Creatinine 2.5 mg/dL (0.7-1.3) Estimated GFR (Cockcroft-Gault) 30.5 BUN/Creatinine Ratio 20 (6-20) Glucose Level 155 mg/dL (70-99) Calcium Level 9.0 mg/dL (8.5-10.1) Total Bilirubin 0.4 mg/dL (0.2-1.0) Aspartate Amino Transf (AST/SGOT) 34 U/L (15-37) Alanine Aminotransferase (ALT/SGPT) 43 U/L (16-63) Alkaline Phosphatase 126 U/L (46-116) Total Protein 6.7 g/dL (6.4-8.2) Albumin 2.6 g/dL (3.4-5.0) Albumin/Globulin Ratio 0.6 (1.0-1.7) Test 06/02/21 11:42 06/02/21 16:39 06/02/21 18:10 06/02/21 19:15 Glucose (Fingerstick) 98 mg/dL (70-99) 155 mg/dL (70-99) 252 mg/dL (70-99) Sodium Level 138 mmol/L (136-145) Potassium Level 4.9 mmol/L (3.5-5.1) Chloride Level 104 mmol/L (98-107) Carbon Dioxide Level 22 mmol/L (21-32) Anion Gap 12 (6-14) Blood Urea Nitrogen 53 mg/dL (8-26) Creatinine 2.7 mg/dL (0.7-1.3) Estimated GFR (Cockcroft-Gault) 27.9 Glucose Level 203 mg/dL (70-99) Calcium Level 8.6 mg/dL (8.5-10.1) Test 06/03/21 05:50 06/03/21 07:13 06/03/21 12:06 Sodium Level 141 mmol/L (136-145) Potassium Level 5.1 mmol/L (3.5-5.1) Chloride Level 105 mmol/L (98-107) Carbon Dioxide Level 19 mmol/L (21-32) Anion Gap 17 (6-14) Blood Urea Nitrogen 54 mg/dL (8-26) Creatinine 2.4 mg/dL (0.7-1.3) Estimated GFR (Cockcroft-Gault) 32.0 Glucose Level 103 mg/dL (70-99) Calcium Level 8.8 mg/dL (8.5-10.1) Glucose (Fingerstick) 129 mg/dL (70-99) 189 mg/dL (70-99) Laboratory Tests Test 06/02/21 16:39 06/02/21 18:10 06/02/21 19:15 06/03/21 05:50 Glucose (Fingerstick) 155 mg/dL (70-99) 252 mg/dL (70-99) Sodium Level 138 mmol/L (136-145) 141 mmol/L (136-145) Potassium Level 4.9 mmol/L (3.5-5.1) 5.1 mmol/L (3.5-5.1) Chloride Level 104 mmol/L (98-107) 105 mmol/L (98-107) Carbon Dioxide Level 22 mmol/L (21-32) 19 mmol/L (21-32) Anion Gap 12 (6-14) 17 (6-14) Blood Urea Nitrogen 53 mg/dL (8-26) 54 mg/dL (8-26) Creatinine 2.7 mg/dL (0.7-1.3) 2.4 mg/dL (0.7-1.3) Estimated GFR (Cockcroft-Gault) 27.9 32.0 Glucose Level 203 mg/dL (70-99) 103 mg/dL (70-99) Calcium Level 8.6 mg/dL (8.5-10.1) 8.8 mg/dL (8.5-10.1) Test 06/03/21 07:13 06/03/21 12:06 Glucose (Fingerstick) 129 mg/dL (70-99) 189 mg/dL (70-99) Brief Hospital Course Mr. Tinajero is a 76 old male admit wth chest pain, rib pain, costochonditis. labs were bad, ct up, potassuim 6.3 to 7.1 meds given to julieta on admit and next day kayexalate given x2 renal followed, well known to them, f/u outptatine K < 5 on 06/02, 5.1 on DC Discharge Information Condition at Discharge: Improved Follow Up: Weeks Disposition/Orders: D/C to Home w/ HH Scheduled Allopurinol (Allopurinol) 100 Mg Tablet, 100 MG PO DAILY for GOUT, (Reported) Entered as Reported by: SHAE KEITA on 06/01/21226 Last Action: Continued on 06/01/2150 by DARIANA KING Aspirin (Aspirin) 81 Mg Tab.chew, 81 MG PO DAILY for PPX, (Reported) Entered as Reported by: SHAE KEITA on 06/01/21226 Last Action: Continued on 06/01/2150 by DARIANA KING Atorvastatin Calcium (Atorvastatin Calcium) 40 Mg Tablet, 40 MG PO DAILY for FOR CHOLESTEROL, #30 Ref 0 (Reported) Entered as Reported by: SHAE KEITA on 06/01/21226 Last Action: Continued on 06/01/2150 by DARIANA KING Fluticasone Propionate (Fluticasone Propionate Nasal Lawrence) 16 Gm Lawrence.susp, 2 SPRAY NS DAILY for ALLERGIES, (Reported) Entered as Reported by: SHAE KEITA on 06/01/21226 Last Action: Continued on 06/01/2150 by DARIANA KING Folic Acid/Vitamin B Comp W-C (Nephro-Keke Tablet) 0.8 Mg Tablet, 1 TAB PO DAILY for SUPPLEMENT, (Reported) Entered as Reported by: SHAE KEITA on 06/01/21226 Last Action: Continued on 06/01/2150 by DARIANA KING Insulin Aspart (Novolog Flexpen) 100 Unit/1 Ml Insuln.pen, 8 UNIT SQ TIDWMEALS for DM, (Reported) Entered as Reported by: SHAE KEITA on 06/01/21226 Last Action: Converted on 06/01/21849 by DARIANA KING Insulin Detemir (Levemir Flextouch) 100 Unit/1 Ml Insuln.pen, 27 UNIT SQ QHS for DM, (Reported) Entered as Reported by: SHAE KEITA on 06/01/21226 Last Action: Converted on 06/01/21849 by DARIANA KING Linagliptin (Tradjenta) 5 Mg Tablet, 5 MG PO DAILY for TYPE 2 DIABETES, (Reported) Entered as Reported by: SHAE KEITA on 06/01/21226 Last Action: Continued on 06/01/21849 by DARIANA KING Metoprolol Tartrate (Metoprolol Tartrate) 50 Mg Tablet, 50 MG PO BID for FOR HYPERTENSION, #60 Ref 0 (Reported) Entered as Reported by: SHAE KEITA on 06/01/21226 Last Action: Continued on 06/01/21849 by DARIANA KING Pantoprazole Sodium (Pantoprazole Sodium ) 40 Mg Tablet.dr, 40 MG PO DAILYAC for GERD, (Reported) Entered as Reported by: SHAE KEITA on 06/01/21226 Last Action: Continued on 06/01/21849 by DARIANA KING Sodium Bicarbonate (Sodium Bicarbonate) 650 Mg Tablet, 650 MG PO BID for HD, (Reported) Entered as Reported by: SHAE KEITA on 06/01/21226 Last Action: Continued on 06/01/21849 by DARIANA KING Scheduled PRN Acetaminophen (Acetaminophen) 325 Mg Tablet, 650 MG PO PRN Q6HRS PRN for MILD PAIN / TEMP > 100.3'F, (Reported) Entered as Reported by: SHAE KEITA on 06/01/21230 Last Action: Continued on 06/01/21849 by DARIANA KING Albuterol Sulfate (Proair Hfa Inhaler) 8.5 Gm Hfa.aer.ad, 2 PUFF INH PRN Q4HRS PRN for SHORTNESS OF BREATH, Ref 0 (Reported) Entered as Reported by: SHAE KEITA on 06/01/21230 Last Action: Reviewed on 06/01/21721 by SHEILA REN, RN Bisacodyl (Dulcolax) 10 Mg Supp.rect, 10 MG RC PRN DAILY PRN for CONSTIPATION, Ref 0 (Reported) Entered as Reported by: SHAE KEITA on 06/01/21230 Last Action: Continued on 06/01/21849 by DARIANA KING Calcium Carbonate (Tums) 300 Mg Tab.chew, 1,000 MG PO PRN Q4HRS PRN for INDIGESTION, (Reported) Entered as Reported by: SHAE KEITA on 06/01/21230 Last Action: Reviewed on 06/01/21721 by SHEILA REN RN Guaifenesin/Dextromethorphan (Mucus Relief Dm Tablet) 1 Each Tablet, 1 EACH PO PRN BID PRN for COUGH, (Reported) Entered as Reported by: SHAE KEITA on 06/01/21230 Last Action: Reviewed on 06/01/21721 by SHEILA REN RN Loperamide Hcl (Loperamide) 2 Mg Tablet, 2 MG PO PRN Q4HRS PRN for DIARRHEA, (Reported) Entered as Reported by: SHAE KEITA on 06/01/21230 Last Action: Reviewed on 06/01/21721 by SHEILA REN RN Loratadine (Loratadine) 10 Mg Tablet, 10 MG PO PRN DAILY PRN for ALLERGIES, (Reported) Entered as Reported by: SHAE KEITA on 06/01/21230 Last Action: Reviewed on 06/01/21721 by SHEILA REN RN Mag Hydrox/Al Hydrox/Simeth (Mintox Plus Tablet Chewable) 1 Each Tab.chew, 2 EACH PO PRN Q3HRS PRN for INDIGESTION, (Reported) Entered as Reported by: SHAE KEITA on 06/01/21230 Last Action: Reviewed on 06/01/21721 by SHEILA REN RN Nystatin (Nystatin) 15 Gm Cream..g., 1 [place] TP PRN BID PRN for SKIN PROTECTION, (Reported) Entered as Reported by: SHAE KEITA on 06/01/21233 Last Action: Continued on 06/01/21849 by DARIANA KING Sennosides/Docusate Sodium (Senna Plus Tablet) 1 Each Tablet, 2 EACH PO PRN QHS PRN for CONSTIPATION, (Reported) Entered as Reported by: SHAE KEITA on 06/01/21230 Last Action: Continued on 06/01/21 0850 by DARIANA KING Patient Instructions Patient Instructions pt seen face to face and plan discussed chart review, meds, plan 34 minutes, Justicifation of Admission Dx: Justifications for Admission: Justification of Admission Dx: Yes Chronic Renal Failure: Electrolyte Abnormality DARIANA KING MD Jun 03, 2021 13:32
--- NOTE | 2021-06-03 13:42 | NUR ---
Patient and all belongings and discharge education given to patient. HH with [facility], IV and telemonitor discontinued. Wheeled out by [employer]. [facility] informed on patient's arrival.
== END 2021-06-03 13:41 | disposition home health service (06) | DRG 205 ==
LOC: ER 18:00 → ED HOLD 21:49 → 5 NORTH 23:03
PROVIDERS: ADMIT Student in an Organized Health Care Education/Training Program; ATTEND Student in an Organized Health Care Education/Training Program
DX: M94.0 Chondrocostal junction syndrome [Tietze] (principal); N17.0 Acute kidney failure with tubular necrosis; E87.5 Hyperkalemia; E11.22 Type 2 diabetes mellitus with diabetic chronic kidney disease; E66.9 Obesity, unspecified; I12.9 Hypertensive chronic kidney disease with stage 1 through stage 4 chronic kidney disease, or unspecified chronic kidney disease; Z68.31 Body mass index [BMI] 31.0-31.9, adult; Z79.4 Long term (current) use of insulin; Z82.0 Family history of epilepsy and other diseases of the nervous system; M10.9 Gout, unspecified; N18.32 Chronic kidney disease, stage 3b
CPT/HCPCS: 36415; 74176; 76700; 80048; 80053; 81001; 82962; 83690; 84132; 84484; 85025; 87426; 93005; 96372; 96374; 96375; J0360; J0610; J1644; J1815; J1940; J2270; J2405; J3490; J7030; U0003; U0005; 97110-GP; 97530-GP; 97535-GO; 99291-25; G0378